=== PATIENT | male | born 1950 | race Caucasian/White ===

== ENCOUNTER 2019-05-20 08:28 | Day surgery (SDC) | payer MEDICARE, OTHER, SELFPAY ==
[2019-05-19 12:32] VITALS: BMI 25.1
[2019-05-20] VITALS (7 sets, daily range): BP systolic 116–171; BP diastolic 74–95; PULSE 66–93; RESP 16–18; TEMP 36.3–37; O2SAT 96–100
--- NOTE | 2019-05-20 09:28 | P.ANES_ITS ---
Pre-Anesthetic Assessment Pre-Anesthetic Assessment: Height/Weight: Height 1.78 m Weight 79.379 kg Temp Pulse Resp BP Pulse Ox 98.6 F 66 18 171/95 97 05/20/19 08:53 05/20/19 08:53 05/20/19 08:53 05/20/19 08:53 05/20/19 08:53 Preop Diagnosis: Left shoulder rotatof cuff tear, AC joint DJD Proposed Procedure: Operation Date: 05/20/19 11:15 Proposed Procedures p Shoulder Arthroscopy, subacromial decompresssion, poss bicep tenodesis 34117, 31879 M75.112 M19.012 M75.42(Left) - DO dale Shepard Rotator Cuff Repair(Left) - DO dale Shepard Distal Clavicle Resection(Not Applicable) - Mario Gavin DO Familial anesthetic complications: No touble with anesthesia Was Beta Rhonda taken within 24 hours: N/A Last intake: Intake Last night at 900 pm Last Liquid Date 05/19/19 Last Solid Date 05/19/19 Social: Social History: Alcohol (2 highballs (whiskey and water) -) and No to bacco Exam: Pre-Anes Outpt Exam: alert, oriented x 3, clear to auscultation bilaterally and regular rate & rhythm Airway: Cervical ROM: WNL MP: 4 Dentition: Other Additional comments: 2 caps on front Pulmonary: Pulmonary: None reported CV/HEM: CV/HEM: HTN : : None reported Hepatic: Hepatic: None reported GI: GI: None reported Metabolic: Metabolic: None reported Musc/skel: Musc/skel: None reported Neuropsych: Neuropsych: None reported Anesthetic Plan: Anesthesia: General and Regional (specify below) ( Interscalene (L)) Risk of > 500 ml blood loss (7ml/kg in children): No Data Anesthesia Cardiac Studies: No Data to Display
[2019-05-20] MEDS: sodium chloride 0.9% 1,000 ML 30 ML IV (09:45)
--- NOTE | 2019-05-20 09:55 | ANES.PROC ---
Anesthesia Procedures Procedure/Date: 05/20/19 Nerve Block ^: Nerve Block 1: Main Anesthesia: general anesthesia Time Out Performed: Yes Consent: requested by attending/covering physician, from patient, risks and benefits reviewed and patient agrees to proceed Nerve block location: interscalene (L) Anesthesia monitors applied: pulse oximetry Nerve block position: semi sitting Anesthetic Used: ropivicaine 0.5% and with decadron (4 mg) Amount of anesthesia used (mL): 20 Ultrasound used to: visualize and ID brachial plexus and visualize and ID interscalene groove Nerve Stimulator Used?: No Interscalene/Femoral BLK: 2 stimuplex 22 g needle used for position and inplane approach, visualize local anesthetic spread and no vascular puncture identified Injection: neg aspiration of heme Patient Tolerated Procedure: well and no complications Complications: none
[2019-05-20] MEDS: midazolam 1 mg/mL INJ 2 mL 2 MG IVP ×2 (10:00→11:37)
--- NOTE | 2019-05-20 11:04 | PM.HPUD ---
H&P update H&P Update: DATE OF SURGERY/PROCEDURE: 05/20/19 DATE H&P PERFORMED: 04/23/19 H&P UPDATE INFORMATION: H&P completed within last 30 days and No changes to prior documentation PREOP DIAGNOSIS: left shoulder rotator cuff tear PRIMARY INDICATION FOR PROCEDURE: left shoulder pain with decreased range of motion PLANNED PROCEDURE: Operation Date: 05/20/19 11:15 Proposed Procedures p Shoulder Arthroscopy, subacromial decompresssion, poss bicep tenodesis 81958, 09795 M75.112 M19.012 M75.42(Left) - DO dale Shepard Rotator Cuff Repair(Left) - DO dale Shepard Distal Clavicle Resection(Not Applicable) - DO Eugenia Shepard H&P Medications/Allergies: Current Medications: Current Medications Generic Name Dose Route Start Last Admin Trade Name Freq PRN Reason Stop Dose Admin Sodium Chloride 1,000 mls @ 30 ml s/hr 05/20/19 09:00 05/20/19 09:45 Sodium Chloride 0.9% IV 05/21/19 08:59 30 mls/hr .Q24H DEEPAK Administration
[2019-05-20] MEDS: vancomycin 1,000 MG in sodium chloride 0.9% 250 ML 250 MG IV (13:45)
--- NOTE | 2019-05-20 14:13 | P.OP_ITS ---
Operative Report Date of procedure: 05/20/19 Preop Diagnosis: left shoulder rotator cuff tear Post-op Findings: left shoulder rotator cuff tear Procedure Done: diagnostic arthroscopy left shoulder with minimal debridement Open distal clavicle resection Open subacromial decompression Open rotator cuff repair with application of acellular dermal graft and platelet rich plasma Implants: #4 Arthrex swivel lock anchors Specimens removed/disposition: distal clavicle Portion of acromion Surgeon: Mario Gavin Anesthesia: general and other (left-sided interscalene block) Estimated blood loss (mL): 50 Complications: no apparent complications Condition: stable Disposition: PACU (then home) Brief History: 69-year-old white male with gradual onset over the last 2 years of left shoulder pain. Pain has affected patient by decreased range of motion and persistent pain this gotten progressively worse.. He noticed that his range of motion is decreased is also painful. He has difficulty with activities of daily living such as dressing pushing pulling and lifting. Plain film x-rays show arthritic change of the acromioclavicular joint. MRI shows full thickness tear of the rotator cuff with some mild retraction. Recommendations are made that the patient this point undergo diagnostic arthroscopy with rotator cuff repair application of acellular patch with platelet rich plasma with distal clavicle excision soak decompression possible biceps tenodesis. We discussed with the patient that the most common complication rotator cuff repair is a re-tear this is reasonable we will use the acellular patch to provide more tissue near to augment the repair of his 69-year-old rotator cuff foot. He may have decreased range of motion, he may have persistent complaints of pain.he could experience nerve/blood vessel/tendon injury. Medical complications sling surgery can be blood clots, heart attack, stroke risk up to including as well as infection. patient agreeable to proceed with surgery. Procedure: patient identified. Surgical site was signed. Surgical permit was signed. Patient received a left-sided interscalene block by the anesthesia team in the preoperative holding area for postoperative analgesia. He was taken back to the operating room. He received 1 g of vancomycin intravenously for surgical prophylaxis as he is penicillin allergic. He was placed under general endotracheal anesthesia without difficulty. He was then positioned in the beachchair positioner. He was then sterilely prepped and draped usual fashion. Procedural pause was performed. Using a skin marker we marked out the bony landmarks. Using #11 blade we made a small stab incision through which the arthroscopic sheath with a blunt trocar was introduced of the glenohumeral joint. The trocar was then attached to the arthroscopic pump with the dilute saline solution containing epinephrine. The arthroscope verified the written the glenohumeral joint. We verified the position of the biceps tendon and the upper border subscapularis. We advance the arthroscope anteriorly from back to front tenting the skin after the scope was taken out with a switching stick. Is getting 15 blade made an anterior portal incision inserted a 7 mm Arthrex clear cannula. Through this cannula introduced a motorized shaver. We used the shaver to debride some synovial tissue as well as some minor fraying of the labrum. No significant glenohumeral arthritis was noted. Patient's biceps tendon was intact. He had minimal fraying of the anterior aspect of the labrum this was debrided incidentally along with some synovial visualization. With the patient had a full-thickness rotator cuff tear laterally that been noted on MRI. We removed the instruments from the shoulder joint and proceeded to open portion of procedure. We made a skin incision approximately 10 7 L in length from the distal clavicle across the superior aspect of the shoulder coursing to the anterolateral aspect of the upper arm. Full-thickness skin flaps were made. Coagulation was performed of skin edge bleeders. We then used electrocautery to raise the deltopectoral trapezial insertion of the distal clavicle and superior aspect of the acromion. Using a small saw we performed our distal clavicle cut and removed the distal portion of the clavicle approximately 6-8 mm in thickness. We then removed the anterior 45 mm of the acromion with the saw and then use an osteotome to further thin the acromion and used a motorized bur to smooth the distal clavicle as well as the undersurface of the acromion. We performed a partial bursectomy exposing underlying rotator cuff tear. The tear was full-thickness anteriorly and was very thin around the edges perhaps less than millimeters thickness of tissue proximal to the size of a dime just posterior to the bicipital groove. I extended the tear to incorporate the entire supraspinatus tendon and roughened the greater tuberosity footprint 2 medial row anchors were placed through which replaced sutures of #2 FiberWire medially and then slightly lateral to this limbs of fiber tape suture. The fiber tape suture was tied down with a surgeons not and then lateral row anchors were used to make a speed bridge construct.. Due to the thin nature of the claire sofia's rotator cuff as we have noted on MRI and clinically we were prepared to apply a acellular dermal patch to reinforce the patient's soft tissue this was done by trimming the graft that had soaked in platelet rich plasma that been drawn from the patient sterilely beginning of the procedure and spun down by the commercial lawn specialist. The graft was cut to approximate the area of our repair. It was held down in the 4 corner region using the #2 FiberWire suture that was placed using a free needle through the graft and secured down to the patient's rotator cuff repair. We then placed a running suture of 3-0 Prolene around the periphery of the patch to further secured in place. The wound is now irrigated Betadine-containing saline solution and antibiotic containing saline solution. The deltoid was repaired back to the acromion by using #2 FiberWire sutures to reattach the deltoid to bone by passing the needle through the bone of the acromion. We then repaired the deltotrapezial split over the distal clavicle and the split of the muscle bellies of the anterior lateral deltoid using a sutures of #2 FiberWire. The wound was then closed in layerswith the final layer being 3-0 Monocryl in a running subcuticular fashion. The 2 portal sites and the major incision and skin glue followed by Steri-Strips applied followed by sterile dressings. The patient is placed in a shoulder immobilizer bolster. He was then aroused from general anesthesia. He was extubated he was taken to the recovery room in stable and satisfactory condition having tolerated procedure well. At the end of procedure all counts were correct.
[2019-05-20] MEDS: EPINEPHrine 1 mg/mL INJ XX ×2 (14:57→14:59)
--- NOTE | 2019-05-20 16:56 | SUR.PHASEI ---
1639 PT AWAKE ALERT DENIESPAIN BUT WANTS TO GET UP TO BEDSIDE TO USE URINAL, PT TO OPS AWAKE ALERT ASSISTED TO BEDIDE ,,PT USING URINAL WITHOUT ASSIST, VSS LT ARM IN SHOULDER IMMOBILIZER. DISTAL FINGERS PINK WARM AND PT MOVES TO COMMAND, STATES THEY FEEL(NUMB)
== END 2019-05-20 17:31 | disposition home or self-care (01) ==
PROVIDERS: Visit Provider Orthopaedic Surgery
PROC: (CPT 29805; principal; 2019-05-20 11:05)
PROC: (CPT 23120; 2019-05-20 11:05)
PROC: (CPT 23120; 2019-05-20 11:05)
DX: M75.112 Incomplete rotator cuff tear or rupture of left shoulder, not specified as traumatic (principal); I10 Essential (primary) hypertension; M17.0 Bilateral primary osteoarthritis of knee; Z83.3 Family history of diabetes mellitus
CPT/HCPCS: 23120; 23130; 23412; 29822; 12345; 88304; 96365; 96374; 96375; J0171; J1100; J1580; J2001; J2250; J2405; J2704; J2795; J3010; J3370; J3490; J7030; J7050

== ENCOUNTER → 2019-05-27 09:07 | Outpatient (BNVA) | payer MEDICARE, OTHER, SELFPAY | PROVIDERS: Visit Provider Specialist | DX: G50.0 Trigeminal neuralgia (principal); G51.32 Clonic hemifacial spasm, left | CPT/HCPCS: 64612; 99212; J0585 ==

== ENCOUNTER 2019-08-04 06:00 | Outpatient (RCR) | payer MEDICARE, OTHER, SELFPAY | END 2019-09-02 23:59 | disposition home or self-care (01) | LOC: MPT 06:00 | PROVIDERS: Referring Provider Orthopaedic Surgery; Visit Provider Orthopaedic Surgery | DX: Z47.89 Encounter for other orthopedic aftercare (principal) | CPT/HCPCS: 97110; 97140; 97161 ==

== ENCOUNTER → 2019-09-02 14:45 | Outpatient (BNVA) | payer MEDICARE, OTHER, SELFPAY | PROVIDERS: Visit Provider Specialist | DX: G51.32 Clonic hemifacial spasm, left (principal) | CPT/HCPCS: 64612; J0585 ==

== ENCOUNTER 2019-09-03 06:00 | Outpatient (RCR) | payer MEDICARE, OTHER, SELFPAY | END 2019-10-03 23:59 | disposition home or self-care (01) | LOC: MPT 06:00 | PROVIDERS: Referring Provider Orthopaedic Surgery; Visit Provider Orthopaedic Surgery | DX: Z47.89 Encounter for other orthopedic aftercare (principal) | CPT/HCPCS: 97110; 97140 ==

== ENCOUNTER 2019-10-04 06:00 | Outpatient (RCR) | payer MEDICARE, OTHER, SELFPAY | END 2019-11-02 23:59 | disposition home or self-care (01) | LOC: MPT 06:00 | PROVIDERS: Visit Provider Orthopaedic Surgery | DX: Z47.89 Encounter for other orthopedic aftercare (principal) | CPT/HCPCS: 97110; 97140 ==

== ENCOUNTER 2019-11-03 06:00 | Outpatient (RCR) | payer MEDICARE, OTHER, SELFPAY | END 2019-12-03 23:59 | disposition home or self-care (01) | LOC: MPT 06:00 | PROVIDERS: Visit Provider Orthopaedic Surgery | DX: Z47.89 Encounter for other orthopedic aftercare (principal) | CPT/HCPCS: 97110; 97140 ==

== ENCOUNTER 2020-04-06 08:04 | Outpatient (CLI) | payer MEDICARE, OTHER, SELFPAY ==
[2020-04-06 08:35] VITALS: BMI 27.3
--- NOTE | 2020-04-06 08:47 | ECG_ITS ---
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 Interpretive Statements NAME OF STUDY: LEXISCAN SESTAMIBI STRESS TEST INDICATION: Dyspnea on Exertion PROCEDURE: At the baseline, the blood pressure was 194/90 mmHg, oxygen saturation 96% with a heart rate of 56 bpm. The electrocardiogram showed sinus bradycardia, normal axis with minimal nonspecific ST depression. The Lexiscan was infused over a period of 20 seconds. A total of 0.4 milligrams of Lexiscan was infused. The stress phase was continued for a total of 5 minutes. Heart rate at the end of the stress phase was 78 bpm, oxygen saturation 96% with a blood pressure 164/84 mmHg. The EKG at the peak infusion revealed sinus rhythm with no significant ST-T wave changes. The study was terminated due to protocol completion. Sestamibi was injected 20 seconds after the Lexiscan infusion. Blood pressure at the end of the recovery phase was 164/84 mmHg, oxygen saturation 96 with a heart rate of 85 beats per minute. CONCLUSION: 1. No significant EKG changes with the LexiScan infusion. 2. No LexiScan induced chest pain or cardiac arrhythmia. 3. Normal blood pressure and heart rate response. 4. Sestamibi/sestamibi perfusion scan pending; see separate report. Electronically Signed On 04-07-2020 14:12:53 COATER ASSOCIATE by Lesa Gomez M.D. [email or web address].[employer]/[id number]
--- NOTE | 2020-04-06 08:47 | NMCV_ITS ---
NM анна perf SPECT r/s* [id number] Santiago Casey Age: 70 Gender: M : 1950 Exam Date: 04/06/2020 08:47 Ordering Phys: Lesa Gomez MD ([email or web address]) Technologist: EDMUND Olson Exam Location: [facility] Indications: DYSPNEA ON EXERTION STRESS TEST Please [facility] IMAGE PROTOCOL Rest/Stress 1 Lexiscan Day Radiopharmaceutical Dose (mCi) Administration Site Administered by Rest: Tc-99m 11.0 IV EDMUND Olson Sestamibi Stress:Tc-99m 32.9 IV EDMUND Nelson Sestamibi Rest: 06-Apr-2020 60 Discovery 630 Stress: 06-Apr-2020 30 Discovery 630 0.4mg Lexiscan. Supine position only as patient was unable to lay prone. SPECT RESULTS Technical Quality: Excellent Raw Data Analysis: Normal Image Corrections: No attenuation or motion correction applied Summed Stress Score: 0 Summed Rest Score: 0 Summed Difference Score: 0 PERFUSION FINDINGS SPECT images demonstrate homogeneous tracer distribution throughout the myocardium on rest and stress images. FUNCTIONAL RESULTS (calculated via Gated SPECT) Stress Image LV EF (%): 91 Stress EDV (mL):74 TID: 0.95 Stress ESV (mL):7 FUNCTIONAL FINDINGS: The left ventricle is normal in size. Transient Ischemia Dilatation of 0.95. There is normal left ventricular systolic function. The left ventricular ejection fraction is hyperdynamic with a value of 91%. There is hyperdynamic left ventricular wall thickening. IMPRESSIONS 1. Myocardial perfusion imaging is normal. 2. Overall left ventricular systolic function is normal without regional wall motion abnormalities. 3. The left ventricular ejection fraction is hyperdynamic with a value of 91%. 4. This study suggests a low likelihood of angiographically significant coronary artery disease. 5. No prior similar studies to compare. Lesa Gomez MD (Electronically Signed) Final Date: 07 April 2020 14:18 S
--- NOTE | 2020-04-06 11:08 | SUR.PREOP ---
Patient reports no pain or discomfort prior to the start of the procedure.
[2020-04-06] MEDS: regadenoson 0.4 Mg/5 ml Syringe IVP (11:09)
[2020-04-06 11:34] VITALS: BP 164/84; PULSE 84
== END 2020-04-06 08:05 | disposition home or self-care (01) ==
LOC: CDL 08:14
PROVIDERS: Visit Provider Internal Medicine Cardiovascular Disease
DX: R06.00 Dyspnea, unspecified (principal)
CPT/HCPCS: 78452; 93017; A9500; J2785

== ENCOUNTER → 2020-06-08 09:43 | Outpatient (BNVA) | payer MEDICARE, OTHER, SELFPAY | PROVIDERS: Visit Provider Specialist | DX: G51.32 Clonic hemifacial spasm, left (principal) | CPT/HCPCS: 64612; J0585 ==

== ENCOUNTER → 2020-09-06 10:58 | Outpatient (BNVA) | payer MEDICARE, OTHER, SELFPAY | PROVIDERS: PCP Nurse Practitioner Family; Visit Provider Internal Medicine Cardiovascular Disease | DX: Z20.822 Contact with and (suspected) exposure to COVID-19 (principal); R00.1 Bradycardia, unspecified | CPT/HCPCS: 87635 ==

== ENCOUNTER 2020-09-11 12:44 | Outpatient (CLI) | payer MEDICARE, OTHER, SELFPAY ==
--- NOTE | 2020-09-11 13:47 | PFTS_ITS ---
Date of Study:09/11/20 Date of Dictation: 09/15/2020 MECHANICS: Post bronchodilator forced vital capacity (FVC) is normal. Post bronchodilator forced expiratory volume in one second (FEV1) is mildly reduced at 85% FEV1/FVC is reduced. There is no significant response to bronchodilator. FLOW VOLUME LOOP: Normal . LUNG VOLUMES: Total lung capacity (TLC) is normal. Residual volume (RV) is normal DIFFUSING CAPACITY FOR CARBON MONOXIDE: Mildly reduced to 66% . INTERPRETATION: The pulmonary function tests mild obstruction on spirometry with no significant bronchodilator response. Normal lung volumes. Mildly reduced gas transfer. Correlate clinically. MTDD
== END 2020-09-11 12:45 | disposition home or self-care (01) ==
LOC: RT 12:49
PROVIDERS: PCP Nurse Practitioner Family; Visit Provider Internal Medicine Cardiovascular Disease
DX: R06.00 Dyspnea, unspecified (principal)
CPT/HCPCS: 94060; 94726; 94729; J7611

== ENCOUNTER → 2020-09-21 12:03 | Outpatient (BNVA) | payer MEDICARE, OTHER, SELFPAY | PROVIDERS: PCP Nurse Practitioner Family; Visit Provider Specialist | DX: G51.32 Clonic hemifacial spasm, left (principal); B02.22 Postherpetic trigeminal neuralgia | CPT/HCPCS: 64612; J0585 ==

== ENCOUNTER → 2020-10-19 12:03 | Outpatient (BNVA) | payer MEDICARE, OTHER, SELFPAY | PROVIDERS: PCP Nurse Practitioner Family; Visit Provider Anesthesiology Pain Medicine | DX: G89.29 Other chronic pain (principal); M48.062 Spinal stenosis, lumbar region with neurogenic claudication; M47.816 Spondylosis without myelopathy or radiculopathy, lumbar region; M51.16 Intervertebral disc disorders with radiculopathy, lumbar region; M43.12 Spondylolisthesis, cervical region; M50.90 Cervical disc disorder, unspecified, unspecified cervical region; M54.9 Dorsalgia, unspecified; B02.22 Postherpetic trigeminal neuralgia; Z79.891 Long term (current) use of opiate analgesic | CPT/HCPCS: 99204 ==

== ENCOUNTER 2020-11-07 07:52 | Outpatient (CLI) | payer MEDICARE, OTHER, SELFPAY ==
--- NOTE | 2020-11-07 08:00 | MR_ITS ---
WS: [id number] MRI LUMBAR SPINE NONCONTRAST TECHNIQUE: Sagittal T1, T2 and STIR imaging. Axial T1 and T2 imaging. CLINICAL INFORMATION: M48.062 - Spinal stenosis, lumbar region with neurogenic ... COMPARISON: None. FINDINGS: Mild lumbar curve. No acute compression. No high-grade central canal stenosis. L1-L2: Normal. L2-L3: Mild annular bulging. Moderate facet arthropathy. Narrowing of the right subarticular recess. Mild right and no significant left foraminal narrowing. Mild central canal stenosis. L3-L4: Mild disc bulging with slight effacement of the ventral thecal sac. Moderate facet arthropathy . Foramen are patent. L4-L5: Mild disc bulging with mild central canal stenosis. Impingement traversing L5 nerve roots bila terally. Mild left and no significant right foraminal narrowing. Moderate facet arthropathy with liga mentum flavum flavum hypertrophy. L5-S1: Mild annular bulging with slight effacement of ventral thecal sac. Slight contact the right S1 nerve root. Mild to moderate facet arthropathy. Spinal canal and foramen are patent. Thoracic canal is patent on the [employer] glazer imaging. Visualized pelvic bony structures: Normal. Paravertebral soft tissues: Normal. MR/MR lumbar spine wo con* [id number] IMPRESSION: 1. Mild lumbar curve. No acute compression. No high-grade central canal stenos is. 2. Mild central canal stenosis L2-3 and L4-5 with narrowing of the right L2-3 and bilateral L4-5 subarticular recess. 3. Mild right L2-3 and mild left L4-5 foraminal narrowing. 4. Moderate facet arthropathy L3-L4 and L4-L5.
--- NOTE | 2020-11-07 08:45 | MR_ITS ---
WS: [id number] MRI CERVICAL SPINE NONCONTRAST TECHNIQUE: Sagittal T1, T2 and STIR imaging. Axial T2, gradient, and fiesta imaging. CLINICAL INFORMATION: M54.12 - Radiculopathy, cervical region COMPARISON: None. FINDINGS: Straightening of the normal cervical lordosis. Cord signal is normal. No high-grade central canal danis rowing. Prior postoperative changes ACDF C6-7. C2-C3: Normal. C3-C4: Mild disc bulging with osteophytic ridging. Mild facet arthropathy. Mild left foraminal narrow ing. Spinal canal is patent. C4-C5: Mild disc bulging with a tiny central shallow protrusion. Mild left greater than right bony fo raminal narrowing. Spinal canal is patent. Mild facet arthropathy. C5-C6: Mild disc osteophyte complex endplate ridging. Mild central canal stenosis with slight contact of the cervical cord. Mild bilateral foraminal narrowing. Mild facet arthropathy. C6-C7: Postoperative changes ACDF. Spinal canal and foramen are patent. C7-T1: Mild disc osteophytic ridging. Mild left and no significant right foraminal narrowing. Spinal canal is patent. Visualized brain stem structures: Normal. Prevertebral soft tissues: Normal. MR/MR cervical spin wo con* [id number] IMPRESSION: 1. Straightening of the normal cervical lordosis. No high-grade central canal narrowing. Cord signal is normal. 2. Prior ACDF C6-7. Spinal canal and foramen are patent at this level. 3. Mild central canal stenosis C5-6 due to disc osteophyte complex and tiny sh allow central protrusion. 4. Tiny shallow central disc osteophyte protrusion C4-5. 5. Mild bony foraminal narrowing more prominent at left C4-5, bilateral C5-C6, left C6-7.
--- NOTE | 2020-11-07 09:30 | XR_ITS ---
WS: [id number] CERVICAL SPINE FLEXION EXTENSION TECHNIQUE: 3 views of the cervical spine: lateral neutral, flexion and extension views. CLINICAL INFORMATION: M43.12 - Spondylolisthesis, cervical region COMPARISON: None. FINDINGS: Straightening of the normal cervical lordosis. ACDF C6-7. Hardware appears in good position. Anterior hypertrophic changes C5-6. No instability on flexion extension. Posterior elements are normal. No other significant findings. XR/XR cervical spine fl/ex [id number] IMPRESSION: No instability on flexion-extension
--- NOTE | 2020-11-07 10:00 | XR_ITS ---
WS: [id number] LUMBAR SPINE FLEXION AND EXTENSION TECHNIQUE: 3 views of the lumbar spine: Lateral neutral, flexion, and extension views. CLINICAL INFORMATION: M47.816 - Spondylosis without myelopathy or radiculopathy... COMPARISON: None. FINDINGS: Osteopenia. Anterior bridging osteophytes L2-L4. Disc space heights are relatively well-maintained. M oderate facet arthropathy L5-S1. No anterolisthesis. No instability on flexion-extension. Aortic calc ification. XR/XR lumbar spine f/e only [id number] IMPRESSION: No instability on flexion-extension
== END 2020-11-07 07:53 | disposition home or self-care (01) ==
LOC: RADWPI 07:53
PROVIDERS: PCP Nurse Practitioner Family; Visit Provider Anesthesiology Pain Medicine
DX: M43.12 Spondylolisthesis, cervical region (principal); M47.816 Spondylosis without myelopathy or radiculopathy, lumbar region; M48.062 Spinal stenosis, lumbar region with neurogenic claudication; M54.12 Radiculopathy, cervical region; M25.78 Osteophyte, vertebrae; M50.221 Other cervical disc displacement at C4-C5 level; M48.02 Spinal stenosis, cervical region
CPT/HCPCS: 72040; 72120; 72141; 72148

== ENCOUNTER → 2020-11-16 12:28 | Outpatient (BNVA) | payer MEDICARE, OTHER, SELFPAY | PROVIDERS: PCP Nurse Practitioner Family; Visit Provider Anesthesiology Pain Medicine | DX: G89.29 Other chronic pain (principal); M51.16 Intervertebral disc disorders with radiculopathy, lumbar region; M47.816 Spondylosis without myelopathy or radiculopathy, lumbar region; M50.90 Cervical disc disorder, unspecified, unspecified cervical region; B02.22 Postherpetic trigeminal neuralgia; Z79.891 Long term (current) use of opiate analgesic | CPT/HCPCS: 99214; 99215 ==

== ENCOUNTER → 2020-11-27 14:07 | Outpatient (BNVA) | payer MEDICARE, OTHER, SELFPAY | PROVIDERS: PCP Nurse Practitioner Family; Visit Provider Anesthesiology Pain Medicine | DX: G89.29 Other chronic pain (principal); M47.816 Spondylosis without myelopathy or radiculopathy, lumbar region; Z79.891 Long term (current) use of opiate analgesic | CPT/HCPCS: 64493; 64494; 64495; J3490 ==

== ENCOUNTER → 2020-12-13 08:27 | Outpatient (BNVA) | payer MEDICARE, OTHER, SELFPAY | PROVIDERS: PCP Nurse Practitioner Family; Visit Provider Anesthesiology Pain Medicine | DX: G89.29 Other chronic pain (principal); B02.22 Postherpetic trigeminal neuralgia; M50.90 Cervical disc disorder, unspecified, unspecified cervical region; M51.16 Intervertebral disc disorders with radiculopathy, lumbar region; M47.816 Spondylosis without myelopathy or radiculopathy, lumbar region; Z79.891 Long term (current) use of opiate analgesic | CPT/HCPCS: 99214 ==

== ENCOUNTER → 2020-12-14 14:06 | Outpatient (BNVA) | payer MEDICARE, OTHER, SELFPAY | PROVIDERS: PCP Nurse Practitioner Family; Visit Provider Specialist | DX: G51.32 Clonic hemifacial spasm, left (principal); B02.29 Other postherpetic nervous system involvement | CPT/HCPCS: 64612; 99213; J0585 ==

== ENCOUNTER → 2021-01-15 12:52 | Outpatient (BNVA) | payer MEDICARE, OTHER, SELFPAY | PROVIDERS: PCP Nurse Practitioner Family; Visit Provider Anesthesiology Pain Medicine | DX: G89.29 Other chronic pain (principal); M47.816 Spondylosis without myelopathy or radiculopathy, lumbar region; M54.2 Cervicalgia; Z79.891 Long term (current) use of opiate analgesic | CPT/HCPCS: 64635; 64636; J1030 ==

== ENCOUNTER → 2021-01-29 12:36 | Outpatient (BNVA) | payer MEDICARE, OTHER, SELFPAY | PROVIDERS: PCP Nurse Practitioner Family; Visit Provider Anesthesiology Pain Medicine | DX: G89.29 Other chronic pain (principal); M47.816 Spondylosis without myelopathy or radiculopathy, lumbar region; M54.2 Cervicalgia; Z79.891 Long term (current) use of opiate analgesic | CPT/HCPCS: 64635; 64636; J1030 ==

== ENCOUNTER 2021-02-05 13:41 | Outpatient (CLI) | payer OTHER, SELFPAY ==
--- NOTE | 2021-02-05 13:51 | CT_ITS ---
WS: [id number] CT scan of the head, 02/05/2021 Clinical Data: NEW ONSET UPPER EXTREMITY TREMORS Comparison: None. DLP: 925.[address] scans at [facility] use at least one of these dose optimization techniques: automated e xposure control; mA and/or kV adjustment per patient size (includes targeted exams where dose is matc hed to clinical indication); or iterative reconstruction. Findings: The ventricular system is moderately dilated without shift. No recent infarct or hemorrhage is seen. There are no abnormal intracerebral masses. The cerebellum and brainstem are not remarkable. Bony windows of the skull and skull base show no fractures or erosions. The mastoid air cells, commander internal affairs al auditory canals, sella turcica, intraorbital contents, and paranasal sinuses are unremarkable. CT/CT head wo con* [id number] Impression: Moderate cerebral atrophy.
== END 2021-02-05 13:42 | disposition home or self-care (01) ==
PROVIDERS: PCP Nurse Practitioner Family; Visit Provider Nurse Practitioner
DX: G25.2 Other specified forms of tremor (principal); G31.9 Degenerative disease of nervous system, unspecified
CPT/HCPCS: 70450

== ENCOUNTER → 2021-02-12 10:23 | Outpatient (BNVA) | payer MEDICARE, OTHER, SELFPAY | PROVIDERS: PCP Nurse Practitioner Family; Visit Provider Anesthesiology Pain Medicine | DX: G89.29 Other chronic pain (principal); M51.16 Intervertebral disc disorders with radiculopathy, lumbar region; M47.816 Spondylosis without myelopathy or radiculopathy, lumbar region; M50.90 Cervical disc disorder, unspecified, unspecified cervical region; B02.22 Postherpetic trigeminal neuralgia; M19.90 Unspecified osteoarthritis, unspecified site; I10 Essential (primary) hypertension; Z79.891 Long term (current) use of opiate analgesic; Z77.22 Contact with and (suspected) exposure to environmental tobacco smoke (acute) (chronic) | CPT/HCPCS: 99214 ==

== ENCOUNTER → 2021-02-20 13:31 | Outpatient (BNVA) | payer MEDICARE, OTHER, SELFPAY | PROVIDERS: PCP Nurse Practitioner Family; Visit Provider Anesthesiology Pain Medicine | DX: G89.29 Other chronic pain (principal); M51.16 Intervertebral disc disorders with radiculopathy, lumbar region; M54.2 Cervicalgia; Z79.891 Long term (current) use of opiate analgesic | CPT/HCPCS: 62323; J1040; J3490 ==

== ENCOUNTER → 2021-03-06 09:13 | Outpatient (BNVA) | payer MEDICARE, OTHER, SELFPAY | PROVIDERS: PCP Nurse Practitioner Family; Visit Provider Anesthesiology Pain Medicine | DX: G89.29 Other chronic pain (principal); M51.16 Intervertebral disc disorders with radiculopathy, lumbar region; M47.816 Spondylosis without myelopathy or radiculopathy, lumbar region; M50.90 Cervical disc disorder, unspecified, unspecified cervical region; B02.22 Postherpetic trigeminal neuralgia; Z79.891 Long term (current) use of opiate analgesic | CPT/HCPCS: 99214 ==

== ENCOUNTER → 2021-03-08 12:02 | Outpatient (BNVA) | payer MEDICARE, OTHER, SELFPAY | PROVIDERS: PCP Nurse Practitioner Family; Visit Provider Specialist | DX: G51.32 Clonic hemifacial spasm, left (principal); B02.29 Other postherpetic nervous system involvement | CPT/HCPCS: 64612; 99213; J0585 ==

== ENCOUNTER → 2021-03-26 15:31 | Outpatient (BNVA) | payer MEDICARE, OTHER, SELFPAY | PROVIDERS: PCP Nurse Practitioner Family; Visit Provider Nurse Practitioner Family | DX: M25.562 Pain in left knee (principal); M25.362 Other instability, left knee | CPT/HCPCS: 73562 ==

== ENCOUNTER 2021-05-03 06:00 | Outpatient (RCR) | payer MEDICARE, OTHER, SELFPAY | END 2021-05-04 23:59 | disposition home or self-care (01) | LOC: MPT 06:00 | PROVIDERS: PCP Nurse Practitioner Family; Referring Provider Anesthesiology Pain Medicine; Visit Provider Anesthesiology Pain Medicine | DX: M54.50 Low back pain, unspecified (principal); G89.29 Other chronic pain | CPT/HCPCS: 97110; 97162 ==

== ENCOUNTER 2021-05-05 06:00 | Outpatient (RCR) | payer MEDICARE, OTHER, SELFPAY | END 2021-06-04 23:59 | disposition home or self-care (01) | LOC: MPT 06:00 | PROVIDERS: PCP Nurse Practitioner Family; Referring Provider Anesthesiology Pain Medicine; Visit Provider Anesthesiology Pain Medicine | DX: M54.50 Low back pain, unspecified (principal); G89.29 Other chronic pain | CPT/HCPCS: 97110; 97140; G0283 ==

== ENCOUNTER → 2021-05-30 08:53 | Outpatient (BNVA) | payer MEDICARE, OTHER, SELFPAY | PROVIDERS: PCP Nurse Practitioner Family; Visit Provider Anesthesiology Pain Medicine | DX: G89.29 Other chronic pain (principal); M48.062 Spinal stenosis, lumbar region with neurogenic claudication; M51.16 Intervertebral disc disorders with radiculopathy, lumbar region; M47.816 Spondylosis without myelopathy or radiculopathy, lumbar region; M50.90 Cervical disc disorder, unspecified, unspecified cervical region; B02.22 Postherpetic trigeminal neuralgia; Z79.891 Long term (current) use of opiate analgesic | CPT/HCPCS: 99214 ==

== ENCOUNTER → 2021-05-31 12:45 | Outpatient (BNVA) | payer MEDICARE, OTHER, SELFPAY | PROVIDERS: PCP Nurse Practitioner Family; Visit Provider Specialist | DX: G51.32 Clonic hemifacial spasm, left (principal); B02.22 Postherpetic trigeminal neuralgia | CPT/HCPCS: 64612; J0585 ==

== ENCOUNTER → 2021-06-18 09:05 | Outpatient (BNVA) | payer MEDICARE, OTHER, SELFPAY | PROVIDERS: PCP Nurse Practitioner Family; Referring Provider Internal Medicine; Visit Provider Internal Medicine | DX: Z20.822 Contact with and (suspected) exposure to COVID-19 (principal); M51.16 Intervertebral disc disorders with radiculopathy, lumbar region | CPT/HCPCS: 87635 ==

== ENCOUNTER 2021-06-22 05:56 | Day surgery (SDC) | payer MEDICARE, OTHER, SELFPAY ==
--- NOTE | 2021-06-19 11:13 | ECG_ITS ---
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 Measurements Intervals [place] Rate: 71 P: 66 NV: 179 QRS: -7 QRSD: 83 T: 63 QT: 404 QTc: 440 Interpretive Statements SINUS RHYTHM No previous ECG available for comparison Electronically Signed On 06-20-2021 14:49:34 SENIOR CHEMIST by Lesa Gomez M.D. [id number]
[2021-06-19 11:14] VITALS: BMI 25.8
--- NOTE | 2021-06-19 11:47 | ANES.PREANE2 ---
Pre-Anesthetic Assessment Height/Weight: Height 1.78 m Weight 81.647 kg Preop Diagnosis: left shoulder rotator cuff tear Operation Date: 06/22/21 11:15 Proposed Procedures p Lumbar decompression L4/5 59240/M48.062(Not Applicable) - Jin Yañez DO Familial anesthetic complications: None Was Beta Rhonda taken within 24 hours: Yes Was Clonidine taken within 24 hours: N/A Social No alcohol and No tobacco Exam alert, oriented x 3, clear to auscultation bilaterally and regular rate & rhythm Airway Submandibular: within normal limits Cervical ROM: within normal limits Mallampati: Class III Dentition: chipped and caps Comments: Comments: Missing several on lower arch Limited mouth opening CV/HEM Hypertension Metabolic Hyperlipidemia and Thyroid Disease Musc/skel Lower Back Pain and Osteoarthritis/DJD Anesthetic Plan ASA status: 3 Anesthesia: General Medications/Allergies Home Medications Medication Instructions Recorded Confirmed Last Taken Type cyanocobalamin (vitamin B-12) 100 100 mcg PO DAILY 05/19/19 05/31/21 05/20/19 History mcg tablet (Vitamin B-12) diclofenac sodium 1 % topical gel 1 % TOPICAL BID 05/19/19 05/31/21 05/20/19 History docusate sodium 100 mg capsule 100 mg PO DAILY 05/19/19 05/31/21 05/20/19 07:00 History (Stool Softener) tamsulosin 0.4 mg capsule 0.8 mg PO DAILY 05/19/19 05/31/21 05/20/19 History cholecalciferol (vitamin D3) 1,250 50,000 unit PO Q7D 05/20/19 05/31/21 05/17/19 History mcg (50,000 unit) capsule onabotulinumtoxinA 100 unit 200 unit SUBCUT DIRECTED 05/27/19 05/31/21 Unknown History solution for injection (Botox) finasteride 5 mg tablet 5 mg PO DAILY 02/21/20 05/31/21 Unknown History levothyroxine 25 mcg tablet 25 mcg PO DAILY 02/21/20 05/31/21 Unknown History simvastatin 20 mg tablet 20 mg PO DAILY 02/21/20 05/31/21 Unknown History lisinopril 5 mg tablet See Rx Instructions .ROUTE 08/10/20 05/31/21 Unknown Rx .COMPLEX #90 tab metoprolol tartrate 25 mg tablet 12.5 mg PO BID #90 tab 08/10/20 05/31/21 Unknown Rx gabapentin 300 mg capsule 300 mg PO TID #90 cap 12/13/20 05/31/21 Unknown Rx Allergies Allergy/AdvReac Type Severity Reaction Status Date / Time NSAIDS (Non-Steroidal Allergy Severe ADR-Nausea Verified 06/05/21 14:23 Anti-Inflamma Penicillins Allergy Severe ALGY-Hives Verified 06/05/21 14:23 SEAFOOD Allergy Severe ADR-Nausea Uncoded 06/05/21 14:23 [facility] Anesthesia Medical History HTN (hypertension) Impingement syndrome, shoulder, left Osteoarthritis Post-herpetic trigeminal neuralgia Shingles Surgical History H/O repair of left rotator cuff History of neck surgery History of shoulder surgery Family History Father Diabetes Brother Diabetes Other Hypertension Denies family history of Stroke Social History Smoking and tobacco status: never smoked Second hand smoke exposure: Yes Alcohol intake: current Alcohol intake frequency: holidays/special occasions only Alcohol type: hard liquor History of recent travel: No Data Anesthesia Cardiac Studies: Sestamibi Stress Test (Cardiology) 04/06/20
[2021-06-22] VITALS (9 sets, daily range): BP systolic 108–147; BP diastolic 69–88; PULSE 69–79; RESP 16–19; TEMP 36.1–36.3; O2SAT 94–100
--- NOTE | 2021-06-22 | SCC_ITS ---
Procedure done: 1. L4/5 laminectomy with patial facetectomy 13.9 seconds of fluoroscopic guidance, for a cumulative dose of 3.47 mGy, was provided to Dr. Yañez by the radiology department. C-arm images of the lumbar spine were saved for the patient's permanent record. [facility]
--- NOTE | 2021-06-22 | XR_ITS ---
WS: [id number] Lumbar spine, C-arm fluoroscopy, 06/22/2021 Clinical Data: spinal stenosis with neurogenic claudation. Comparison: None. Findings: Dr. Yañez performed a lumbar decompression XR/XR lumbar spine 1V [id number] Impression: Lumbar decompression.
[2021-06-22] MEDS: sodium chloride 0.9% 1,000 ML 30 ML IV (06:30)
--- NOTE | 2021-06-22 06:47 | P.ANESUD_ITS ---
Pre-Anesthetic Update Pre-Anesthetic Assessment: Date of Surgery/Procedure: 06/22/21 Preop Hortencia gnosis: Lumbar stenosis with neurogenic claudication Proposed Procedure: Operation Date: 06/22/21 07:00 Proposed Procedures p Lumbar decompression L4/5 23108/M48.062(Not Applicable) - Jin Yañez, DO Any changes to Pre-Anesthetic Assessment?: No Last Intake: Intake Last Liquid Date 06/21/21 Last Liquid Time 19:00 Last Solid Date 06/21/21 Last Solid Time 18:30 Vitals: Temperature 97.4 F L 06/22/21 06:11 Temperature Source Temporal Artery S can 06/22/21 06:11 Pulse Rate 79 06/22/21 06:11 Respiratory Rate 17 06/22/21 06:11 Blood Pressure 147/88 06/22/21 06:11 Blood Pressure [place] n 107 06/22/21 06:11 Pulse Oximetry 96 06/22/21 06:11 Oxygen Delivery Me thod 06/22/21 06:17 Exam: Pre-Anes Outpt Exam: alert, oriented x 3, clear to auscultation bilaterally and regular rate & rhythm Cardiac Studies: Sestamibi Stress Test (Cardiology) 04/06/20
--- NOTE | 2021-06-22 06:47 | W.PM.OPSUD ---
Surgery/Procedure H&P Update DATE OF PROCEDURE: June 22, 2021 DATE H&P PERFORMED: 04/23/19 H&P UPDATE INFORMATION: I have reviewed H&P completed within last 30 days, I have examined patient prior to procedure and No changes to prior documentation PREOP DIAGNOSIS: Lumbar stenosis with neurogenic claudication PLANNED PROCEDURE: Operation Date: 06/22/21 07:00 Proposed Procedures p Lumbar decompression L4/5 83343/M48.062(Not Applicable) - Jin Yañez DO
[2021-06-22] MEDS: clindamycin 900 MG/50 ML PREMIX 100 MG IV (06:52)
--- NOTE | 2021-06-22 07:59 | PM.OP ---
Operative Report Date of procedure: June 22, 2021 Pre-op diagnosis: Preop Diagnosis Lumbar stenosis with neurogenic claudication Post-op diagnosis: same Procedure done: 1. L4/5 laminectomy with patial facetectomy Surgeon: Jin Yañez Estimated blood loss (mL): 5 Procedure: Patient is brought to the operative suite. After undergoing anesthesia they are placed in the prone position. All areas of impingement are well padded. Patient is then prepped and draped in the normal sterile fashion. A skin incision is made over the L4/5 level. This is confirmed under c-arm guidance. A series of dilators are passed and the tubular retractor is docked on the L4 lamina. A bovie is used to clear the soft tissue off the lamina and the L 4/5 facet joint. A high speed cinthya is then used to perform the laminectomy and take down the medial aspect of the L 4/5 facet joint. A kerrison rongeure was then used to take down the remaining lamina and smooth the edge of the laminectomy up to the point where the ligamentum flavum attaches. Attention was then brought to the medial aspect of the facet joint. The remaining medial aspect of the superior and inferior aspect of the facet joint were taken down with the kerrison from the pedicle of L4 to L 5. The facet joint had significant hypertrophy. Attention was then brought to the Ligamentum Flavum. The ligament was taken down from the lamina of L4 to L5 and out medially to the remaining facet joint. The ligament was thick. The dura was then exposed. The dura was in good repair. The L4 nerve was then traced with a curette out the L4/5 foramen and found to be adequately decompressed. The L5 nerve was traced with a curette around the L5 pedicle. The lateral recess was opened with a kerrison helping to further decompress the L5 nerve. Wound is then irrigated copiously with saline and surgiflo is used to stop any bleeding. The tubular retractor is removed and the wound is closed with vicryl and monocryl suture. Glue is then used to protect the wound. A sterile dressing is then placed. Patient was then placed in the supine position and transferred to the PACU in stable condition.
--- NOTE | 2021-06-22 15:14 | ANE.PACU2 ---
Inpatient post-anesthesia follow up: Airway intact: Yes Vital signs: Temperature 97 F Pulse Rate 69 Respiratory Rate 18 Blood Pressure 126/82 Pulse Oximetry 95 Oxygen Delivery Me thod Room Air Oxygen Flow Rate Fraction of Inspir ed Oxygen Hydration adequate: Yes Nausea and vomiting: No Pain level: 4 Mental status: Baseline
== END 2021-06-22 09:57 | disposition home or self-care (01) ==
PROVIDERS: PCP Nurse Practitioner Family; Visit Provider Orthopaedic Surgery
PROC: (CPT 63005; principal; 2021-06-22 07:00)
DX: M48.062 Spinal stenosis, lumbar region with neurogenic claudication (principal); I10 Essential (primary) hypertension; E78.5 Hyperlipidemia, unspecified; Z82.49 Family history of ischemic heart disease and other diseases of the circulatory system; Z83.3 Family history of diabetes mellitus
CPT/HCPCS: 63047; 72020; 76000; 93005; J1100; J1170; J2250; J2370; J2405; J2704; J2710; J3490; J7030

== ENCOUNTER → 2021-08-09 12:52 | Outpatient (BNVA) | payer MEDICARE, OTHER, SELFPAY | PROVIDERS: PCP Nurse Practitioner Family; Visit Provider Orthopaedic Surgery | DX: Z47.89 Encounter for other orthopedic aftercare (principal); Z98.890 Other specified postprocedural states | CPT/HCPCS: 99024 ==

== ENCOUNTER → 2021-09-20 10:51 | Outpatient (BNVA) | payer MEDICARE, OTHER, SELFPAY | PROVIDERS: PCP Nurse Practitioner Family; Visit Provider Orthopaedic Surgery | DX: Z47.89 Encounter for other orthopedic aftercare (principal); Z98.890 Other specified postprocedural states; G51.32 Clonic hemifacial spasm, left; B02.29 Other postherpetic nervous system involvement | CPT/HCPCS: 64612; 99213 ==

== ENCOUNTER 2021-12-06 10:31 | Outpatient (CLI) | payer MEDICARE, OTHER, SELFPAY ==
--- NOTE | 2021-12-06 11:00 | MR_ITS ---
WS: [id number] MRI LUMBAR SPINE WITH AND WITHOUT CONTRAST HISTORY: Numbness bilateral legs, pain on the LEFT. Pain into LEFT hip. COMPARISON: 11/07/2020 TECHNIQUE: Sagittal and axial multisequence imaging is submitted. Sagittal and axial T1 fat sat seque nces post-MultiHance 19 cc IV. Anterior cervical fusion at C6-7. Very slight increase in the thoracic kyphosis. 2 mm retrolisthesis of L4. Mild disc desiccation at L4-5 and L5-S1. No acute fractures. No discitis or osteomyelitis. Conus terminates normally at L1-2 disc level. L1-L2: Normal. L2-L3: Mild disc bulging and ligamentum flavum and facet arthritis. Disc encroachment on the ventral thecal sac with mild narrowing of the RIGHT subarticular recess. No change since the prior study. L3-L4: Very mild annular disc bulging with ligamentum flavum and facet arthritis. No stenosis. L4-L5: Mild annular disc bulge with a focal central disc protrusion versus osteophyte and annular fis sure. This disc protrusion is encroaching toward the LEFT exiting L5 nerve root. Mild central canal s tenosis with minimal improvement since the prior study. In the interval small LEFT hemilaminectomy de fect is now evident. Nerve roots are slightly clumped within the thecal sac. There is mild encroachme nt into the central canal by facet disease. There is mild narrowing of the subarticular recesses and LEFT foramen. Mild edema in the interspinous ligaments at the L4 level. Greater on the LEFT than the RIGHT. L5-S1: No stenosis. Paravertebral soft tissues are normal. Enhancement within the surgical bed at the L4-5 level on the LEFT. LEFT hemilaminectomy defect. Enhan cement encases the thecal sac. 5.3 mm cystic collection along the posterior RIGHT lateral thecal sac. On the postcontrast images there is some very mild peripheral enhancement. This may represent a very small postoperative seroma or facet cysts. Tiny abscess is not excluded. MR/MR lumbar spine wo/w con [id number] IMPRESSION: 1. Postoperative LEFT hemilaminectomy changes at L4-5 are new since the prior study of 11/07/2020. No evidence for osteomyelitis or discitis. 2. 5.3 mm collection in the posterior lateral RIGHT thecal sac at the L4-5 lev el. Differential includes a small facet joint cyst, benign postoperative collec tion such as resolving hematoma or a very tiny abscess. 3. Very tiny central disc protrusion or osteophyte at L4-5 with minimal encroa chment towards the exiting L5 nerve root. Mild central stenosis at L4-5. 4. 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 5. Mild narrowing of the RIGHT subarticular recess at L2-3.
[2021-12-06 11:24] LABS: Blood Urea Nitrogen 12 mg/dL (8-23)
[2021-12-06] MEDS: gadobenate dimeglumine 20 mL vial IV (11:54)
== END 2021-12-06 10:32 | disposition home or self-care (01) ==
LOC: RAD 10:32
PROVIDERS: PCP Nurse Practitioner Family; Visit Provider Orthopaedic Surgery
DX: M79.605 Pain in left leg (principal); R20.0 Anesthesia of skin; M48.061 Spinal stenosis, lumbar region without neurogenic claudication; G03.9 Meningitis, unspecified; M48.062 Spinal stenosis, lumbar region with neurogenic claudication
CPT/HCPCS: 72158; 82565; 84520; 99213; 99214

== ENCOUNTER → 2021-12-13 11:51 | Outpatient (BNVA) | payer MEDICARE, OTHER, SELFPAY | PROVIDERS: PCP Nurse Practitioner Family; Visit Provider Specialist | DX: G51.32 Clonic hemifacial spasm, left (principal); B02.29 Other postherpetic nervous system involvement | CPT/HCPCS: 64612; J0585 ==

== ENCOUNTER → 2021-12-25 10:47 | Outpatient (BNVA) | payer MEDICARE, OTHER, SELFPAY | PROVIDERS: PCP Nurse Practitioner Family; Visit Provider Anesthesiology Pain Medicine | DX: Z79.891 Long term (current) use of opiate analgesic (principal); G89.29 Other chronic pain; M51.16 Intervertebral disc disorders with radiculopathy, lumbar region; M48.062 Spinal stenosis, lumbar region with neurogenic claudication; M47.816 Spondylosis without myelopathy or radiculopathy, lumbar region; M50.90 Cervical disc disorder, unspecified, unspecified cervical region; B02.22 Postherpetic trigeminal neuralgia | CPT/HCPCS: 99214 ==

== ENCOUNTER → 2022-01-21 09:58 | Outpatient (BNVA) | payer MEDICARE, OTHER, SELFPAY | PROVIDERS: PCP Nurse Practitioner Family; Visit Provider Anesthesiology Pain Medicine | DX: G89.29 Other chronic pain (principal); M48.062 Spinal stenosis, lumbar region with neurogenic claudication; M51.16 Intervertebral disc disorders with radiculopathy, lumbar region; M47.816 Spondylosis without myelopathy or radiculopathy, lumbar region; M50.90 Cervical disc disorder, unspecified, unspecified cervical region; B02.22 Postherpetic trigeminal neuralgia | CPT/HCPCS: 99214 ==

== ENCOUNTER → 2022-01-31 10:57 | Outpatient (BNVA) | payer MEDICARE, OTHER, SELFPAY | PROVIDERS: PCP Nurse Practitioner Family; Visit Provider Orthopaedic Surgery | DX: M48.062 Spinal stenosis, lumbar region with neurogenic claudication (principal) | CPT/HCPCS: 99214 ==

== ENCOUNTER → 2022-03-07 09:14 | Outpatient (BNVA) | payer MEDICARE, OTHER, SELFPAY | PROVIDERS: PCP Nurse Practitioner Family; Visit Provider Specialist | DX: G51.32 Clonic hemifacial spasm, left (principal); B02.22 Postherpetic trigeminal neuralgia | CPT/HCPCS: 64612; J0585 ==

== ENCOUNTER 2022-03-07 11:33 | Outpatient (CLI) | payer MEDICARE, OTHER, SELFPAY | END 2022-03-07 11:34 | disposition home or self-care (01) | LOC: RT 03-13 11:36 | PROVIDERS: PCP Nurse Practitioner Family; Visit Provider Orthopaedic Surgery | DX: Z01.89 Encounter for other specified special examinations (principal) | CPT/HCPCS: 93005 ==

== ENCOUNTER 2022-03-13 12:43 | Inpatient (IN) | payer MEDICARE, OTHER, SELFPAY ==
[2022-03-07 08:33] VITALS: BMI 25.8
--- NOTE | 2022-03-07 08:46 | ECG_ITS ---
[facility] Test Date: 2022-03-07 Pat Name: Santiago Casey Department: Room: Gender: Male Bariatric Surgeon: : 1950 Requested By: Mignon Moeller Order Number: [id number] Mary MD: Chidi Bell M.D. Measurements Intervals [place] Rate: 63 P: 52 DE: 177 QRS: -24 QRSD: 92 T: 46 QT: 432 QTc: 443 Interpretive Statements SINUS RHYTHM BORDERLINE LEFT AXIS DEVIATION [QRS AXIS < -20] Compared to ECG 06/19/2021 11:26:51 No significant changes Electronically Signed On 03-07-2022 15:07:08 CDT by Chidi Bell M.D. [email or web address]
--- NOTE | 2022-03-07 08:56 | P.ANESASSM_ITS ---
Pre-Anesthetic Assessment Height/Weight: Height 1.78 m Weight 81.647 kg Preop Diagnosis: Lumbar stenosis with neurogenic claudication Operation Date: 03/13/22 09:50 Proposed Procedures p PLIF L4/5 14632/39983/[id number]/08704(Not Applicable) - Jin Yañez DO Familial anesthetic complications: None Social No alcohol and No tobacco Exam alert, oriented x 3, clear to auscultation bilaterally and regular rate & rhythm Airway Dentition: caps Pulmonary None reported CV/HEM Hypertension PVCs Metabolic Hyperlipidemia and Thyroid Disease Musc/skel Lower Back Pain Neuropsych None reported Anesthetic Plan ASA status: 3 Anesthesia: General Risk of > 500 ml blood loss (7ml/kg in children): No Medications/Allergies Home Medications Medication Instructions Recorded Confirmed Last Taken Type cyanocobalamin (vitamin B-12) 100 100 mcg PO DAILY 05/19/19 03/07/22 06/21/21 History mcg tablet (Vitamin B-12) tamsulosin 0.4 mg capsule 0.8 mg PO DAILY 05/19/19 03/07/22 06/20/21 History onabotulinumtoxinA 100 unit 200 unit SUBCUT DIRECTED 05/27/19 02/14/22 Unknown History solution for injection (Botox) finasteride 5 mg tablet 5 mg PO DAILY 02/21/20 03/07/22 06/21/21 History levothyroxine 25 mcg tablet 25 mcg PO DAILY 02/21/20 03/07/22 06/21/21 History simvastatin 20 mg tablet 20 mg PO DAILY 02/21/20 03/07/22 06/21/21 History lisinopril 5 mg tablet See Rx Instructions .Route 08/10/20 03/07/22 06/21/21 Rx .COMPLEX #90 tabs cholecalciferol (vitamin D3) 1,250 50,000 unit PO Q14D 02/14/22 03/07/22 Unknown History mcg (50,000 unit) capsule metoprolol tartrate 25 mg tablet 25 mg PO DAILY 02/14/22 03/07/22 Unknown History Allergies Allergy/AdvReac Type Severity Reaction Status Date / Time NSAIDS (Non-Steroidal Allergy Severe ADR-Nausea Verified 02/07/22 09:22 Anti-Inflamma Penicillins Allergy Severe ALGY-Hives Verified 02/07/22 09:22 SEAFOOD Allergy Severe ADR-Nausea Uncoded 02/07/22 09:22 COUNT INCLUDES THE [facility] Anesthesia Medical History HTN (hypertension) Impingement syndrome, shoulder, left Osteoarthritis Post-herpetic trigeminal neuralgia Shingles Surgical History H/O repair of left rotator cuff History of neck surgery History of shoulder surgery Family History Father Diabetes Brother Diabetes Other Hypertension Denies family history of Stroke Social History Smoking and tobacco status: never smoked Second hand smoke exposure: Yes Alcohol intake: current Alcohol intake frequency: holidays/special occasions only Alcohol type: hard liquor History of recent travel: No Data Anesthesia Cardiac Studies: Sestamibi Stress Test (Cardiology) 04/06
[2022-03-07 09:11] LABS: Basophils # 0.1 10^3/uL (0.0-0.1); Basophils % 0.6 %; Eosinophils # 0.1 10^3/uL (0.0-0.8); Eosinophils % 1.5 %; Hematocrit 48.7 % (42.0-52.0); Hemoglobin 16.3 g/dL (11.7-16.6); Lymphocytes # 1.6 10^3/uL (0.8-4.8); Lymphocytes % 18.2 %; Mean Corpuscular HGB Conc 33.5 g/dL (30.0-36.0); Mean Corpuscular Hemoglobin 30.9 pg (28.0-34.0); Mean Corpuscular Volume 92.2 fl (80-94); Mean Platelet Volume 10.4 fL (7.4-10.4); Monocytes # 0.5 10^3/uL (0.2-0.9); Monocytes % 5.1 %; Neutrophils # 6.62 10^3/uL (1.8-7.7); Nucleated Red Blood Cells % 0 %; Platelet Count 221 10^3/cmm (130-400); Red Blood Count 5.28 10^6/uL (4.1-5.3); Red Cell Distribution Width 13.2 % (12.1-15.1); White Blood Count 8.9 10^3/uL (4.0-10.0)
[2022-03-07 09:29] LABS: Anion Gap 13.9 (5-19); Blood Urea Nitrogen 14 mg/dL (8-23); Calcium 9.2 mg/dL (8.5-10.5); Carbon Dioxide 25 mmol/L (22-29); Chloride 105 mmol/L (98-107); Creatinine Clr Calc Pharmacy 64.6811; Glucose 142 mg/dL (65-115); Osmolality Calculated 293 mOsm/kg (285-295); Potassium 3.9 mmol/L (3.5-5.1); Sodium 140 mmol/L (136-145)
[2022-03-13] VITALS (27 sets, daily range): BP systolic 85–144; BP diastolic 34–84; PULSE 67–106; RESP 10–22; TEMP 36.1–36.7; O2SAT 90–99
--- NOTE | 2022-03-13 | SCC_ITS ---
Procedure done: 1. L4/5 Interbody fusion with posterolateral fusion 2. Instrumentation L4/5 3. Cage at L4/5 4. Laminectomy L4 5. use of autograft from same incision 6. allograft 7. Bone marrow aspirate from right iliac crest 8. use of computer navigation / stereo tactic spine 1 seconds of fluoroscopic guidance, for a cumulative dose of 33 mGy, was provided to Dr. Yañez by the radiology department. C-arm images of the lumbar spine were saved for the patient's permanent record. JOHNNY
--- NOTE | 2022-03-13 | XR_ITS ---
WS: [id number] Lumbar spine, the arm fluoroscopy views, 03/13/2022 Clinical Data: PLIF L4/5 ; or pic Comparison: Lumbar spine, 11/07/2020 Findings: Dr. Yañez performed a posterior lumbar fusion with bilateral pedicle screws at L4-L5. There is a disc spacer at L4-L5. XR/XR lumbar spine 2-3V* [id number] Impression: Posterior lumbar fusion L4-L5.
[2022-03-13] MEDS: sodium chloride 0.9% 1,000 ML 30 ML IV (08:28)
--- NOTE | 2022-03-13 09:12 | PM.HP ---
Providers/Chief Complaint Primary Care Provider: Kriss Betancourt Chief Complaint: PLIF L4/5 History of Present Illness Santiago Casey is a 72 year old male He has a history of a L4/5 laminectomy with patial facetectomy. DOS:06/22/[address] Yañez. He reports lower back pain that has gotten worse. He states his pain is located across his lower back. He reports numbness located in his feet. Review of Systems General: Reports: 10 or more systems reviewed and unremarkable except in HPI and below Const: Denies: fever(s), change in weight or fatigue Eyes: Denies: change in vision, blurry vision, blind spots, photophobia, eye discomfort, seeing flashes or other (Glaucoma) ENMT: Reports: tinnitus and sinus pain; Denies: odynophagia, hoarseness, change in hearing or other (Loss of taste/smell) Card: Denies: chest pain, palpitations, syncope or other (Calf cramps) Resp: Denies: dyspnea, non-productive cough, wheezing or hemoptysis GI: Reports: diarrhea; Denies: abdominal pain, nausea, heartburn, constipation or hematochezia : Denies: urinary frequency or urinary incontinence Musc: Reports: neck pain; Denies: muscle weakness or other (Muscle pain) Skin/Breast: Denies: rash, new lesions or breast mass Neuro: Reports: other (Sleep Apnea); Denies: headache(s), numbness in extremities, weakness in extremities, sensory changes, difficulty walking, Slurred speech present or seizure-like activity Psych: Denies: anxiety, depression, irritability, memory loss, difficulty concentrating or other (Personality changes) Endo: Denies: polyuria, polydipsia, excessive sweating or change in body appearance Seth/Lymph: Denies: easy bruising, easy bleeding or enlarged lymph nodes Medications/Allergies Home Medications Medication Instructions Recorded Confirmed Last Taken Type cyanocobalamin (vitamin B-12) 100 100 mcg PO DAILY 05/19/19 03/13/22 03/13/22 History mcg tablet (Vitamin B-12) tamsulosin 0.4 mg capsule 0.8 mg PO DAILY 05/19/19 03/13/22 03/13/22 History onabotulinumtoxinA 100 unit 200 unit SUBCUT DIRECTED 05/27/19 03/07/22 03/07/22 History solution for injection (Botox) finasteride 5 mg tablet 5 mg PO DAILY 02/21/20 03/13/22 03/13/22 History levothyroxine 25 mcg tablet 25 mcg PO DAILY 02/21/20 03/13/22 03/13/22 History simvastatin 20 mg tablet 20 mg PO DAILY 02/21/20 03/13/22 03/13/22 History lisinopril 5 mg tablet See Rx Instructions .Route 08/10/20 03/13/22 03/12/22 Rx .COMPLEX #90 tabs cholecalciferol (vitamin D3) 1,250 50,000 unit PO Q14D 02/14/22 03/13/22 03/11/22 History mcg (50,000 unit) capsule metoprolol tartrate 25 mg tablet 25 mg PO DAILY 02/14/22 03/13/22 03/13/22 History Intraoperative Neuromonitoring #1 ea 03/11/22 Unknown Rx Allergies Allergy/AdvReac Type Severity Reaction Status Date / Time NSAIDS (Non-Steroidal Allergy Severe ADR-Nausea Verified 03/13/22 08:13 Anti-Inflamma Penicillins Allergy Severe ALGY-Hives Verified 03/13/22 08:13 SEAFOOD Allergy Severe ADR-Nausea Uncoded 03/07/22 09:12 PFSH Acute PFSH: Medical History HTN (hypertension) Impingement syndrome, shoulder, left Osteoarthritis Post-herpetic trigeminal neuralgia Shingles Surgical History H/O repair of left rotator cuff History of neck surgery History of shoulder surgery Family History Father Diabetes Brother Diabetes Other Hypertension Denies family history of Stroke Social History Smoking and tobacco status: never smoked Second hand smoke exposure: Yes Alcohol intake: current Alcohol intake frequency: holidays/special occasions only Alcohol type: hard liquor History of recent travel: No Vitals/I&O/Wt Last Vital Signs Temp 97.7 F 03/13/22 08:18 Pulse 67 03/13/22 08:18 Resp 16 03/13/22 08:18 BP 144/84 03/13/22 08:18 Pulse Ox 97 03/13/22 08:18 O2 Del Method 03/13/22 08:18 Physical Exam Narrative: CONSTITUTIONAL: The patient is a normal appearing [] in no apparent distress. GENERAL: Patient in no acute distress. CARDIAC: Regular rate and rhythm. CHEST: Normal inspiratory effort, normal respiratory rate. ABDOMEN: Soft and nontender. SKIN: Clear, warm and intact. NEURO?PSYCH: The patient is alert and oriented to person, place and time. Sensorv /SILT Motor StrengthShoulder abduction C5 5/5Wrist extension C6 5/5Elbow extension C7 5/5Hand Computer Processing Scheduler C8 5/5Finger abduction T15/5 Radial/ Ulnar/ Median n intact LowerSensory (SILT)Motor StrengthHin flexion L2/3Ant/inner thigh 5/5Hip adduction L2/3 5/5Knee extension L4 Lat thigh, 5/5Toe dorsiflexion L5 5/5Ankle dorsiflexion L5/ Q20Gqhwjws flexion S1 5/5 DTRBleeps 2+Triceps 2+Brachioradialis 2+Patellar 2+Achilles 2+ MUSCULOSKELETAL: [] UPPEREXTREMITIES: The patient had full active ROM in fingers, wrist, elbow, and shoulder. The patient demonstrated ability to fully flex/extend/abduct/adduct fingers, make ok sign, cross 2nd/3rd digits, extend 1st digit fully.. Radial pulse 2+, CR<2 seconds. LOWER EXTREMITIES: Pt has full, active ROM of toes, ankle, knee, and hip. Dorsalis pedis/posterior tibialis pulses 2+, CR<2 seconds. SPINE: Skin warm, dry, intact. Data : 03/07/22 08:37 03/07/22 08:37 A&P Assessment and plan (1) Lumbar stenosis with neurogenic claudication: CONSTITUTIONAL: The patient is a normal appearing [] in no apparent distress. GENERAL: Patient in no acute distress. CARDIAC: Regular rate and rhythm. CHEST: Normal inspiratory effort, normal respiratory rate. ABDOMEN: Soft and nontender. SKIN: Clear, warm and intact. NEURO?PSYCH: The patient is alert and oriented to person, place and time. Sensorv /SILT Motor StrengthShoulder abduction C5 5/5Wrist extension C6 5/5Elbow extension C7 5/5Hand Computer Processing Scheduler C8 5/5Finger abduction T15/5 Radial/ Ulnar/ Median n intact LowerSensory (SILT)Motor StrengthHin flexion L2/3Ant/inner thigh 5/5Hip adduction L2/3 5/5Knee extension L4 Lat thigh, 5/5Toe dorsiflexion L5 5/5Ankle dorsiflexion L5/ [id number] flexion S1 5/5 DTRBleeps 2+Triceps 2+Brachioradialis 2+Patellar 2+Achilles 2+ MUSCULOSKELETAL: [] UPPEREXTREMITIES: The patient had full active ROM in fingers, wrist, elbow, and shoulder. The patient demonstrated ability to fully flex/extend/abduct/adduct fingers, make ok sign, cross 2nd/3rd digits, extend 1st digit fully.. Radial pulse 2+, CR<2 seconds. LOWER EXTREMITIES: Pt has full, active ROM of toes, ankle, knee, and hip. Dorsalis pedis/posterior tibialis pulses 2+, CR<2 seconds. SPINE: Skin warm, dry, intact. Plan L4/5 PLIF Attestations Medical Necessity Statement*: failed conservative tx Coding Level of Care Code Acute [employer] Math [employer] for Chg Fwd Diagnoses Lumbar stenosis with neurogenic claudication M48.062
--- NOTE | 2022-03-13 09:48 | P.ANESUD_ITS ---
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 Proposed Procedure: Operation Date: 03/13/22 09:40 Proposed Procedures p PLIF L4/5 17572/[id number]/[id number](Not Applicable) - Jin Yañez, DO Any changes to Pre-Anesthetic Assessment?: No Last Intake: Intake Last Liquid Date 03/13/22 Last Liquid Time 06:00 Last Solid Date 03/12/22 Last Solid Time 19:00 Vitals: Temperature 97.7 F 03/13/22 08:18 Temperature Source Oral 03/13/22 08:18 Pulse Rate 67 03/13/22 08:18 Pulse Rhythm 03/13/22 08:18 Pulse Strength 3+ Normal 03/13/22 08:18 Respiratory Rate 16 03/13/22 08:18 Blood Pressure 144/84 03/13/22 08:18 Blood Pressure [place] n 104 03/13/22 08:18 Pulse Oximetry 97 03/13/22 08:18 Oxygen Delivery Me thod 03/13/22 08:18 Exam: Pre-Anes Outpt Exam: alert, oriented x 3, clear to auscultation bilaterally and regular rate & rhythm Cardiac Studies: Sestamibi Stress Test (Cardiology) 04/06
[2022-03-13] MEDS: clindamycin 900 MG/50 ML PREMIX 100 MG IV ×2 (10:00→18:16)
[2022-03-13] MEDS: vancomycin 1,000 MG SDV 1000 MG XX (10:39)
[2022-03-13] MEDS: heparin, porcine 1,000 unit/mL INJ 10 mL 10000 UNIT IRRIGATION (10:40)
--- NOTE | 2022-03-13 10:45 | SUR.OPER ---
notified of surgical start.
--- NOTE | 2022-03-13 13:00 | PM.OP ---
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 L4/5 Interbody fusion with posterolateral fusion 2. Instrumentation L4/5 3. Cage at L4/5 4. Laminectomy L4 5. use of autograft from same incision 6. allograft 7. Bone marrow aspirate from right iliac crest 8. use of computer navigation / stereo tactic spine Surgeon: Jin Yañez Convertible Sofa Bedspring Tester: Kimani Yu Convertible Sofa Bedspring Tester: The surgical supplies sterilizer, Kimani Yu, PAC was needed for his expertise under the microscope. He was important and necessary throughout the procedure to complete in a safe and timely manner. He assisted with patient positioning prepping and draping tissue retraction suctioning of the operative field protection of the dural sac and tissue closure Estimated blood loss (mL): 300 Procedure: 1. L4/5 Interbody fusion with posterolateral fusion 2. Instrumentation L4/5 3. Cage at L4/5 4. Laminectomy L4 5. use of autograft from same incision 6. allograft 7. Bone marrow aspirate from right iliac crest 8. use of computer navigation / stereo tactic spine Patient is brought to the operative suite. After undergoing anesthesia, the patient had neuro monitoring attached. Patient was then placed in the prone position on the Augustus table. All areas of impingement were well-padded. Patient was then prepped and draped in the normal sterile fashion. Skin incision was then made over the L4/5 space. Subperiosteal dissection was made out to the transverse processes of L4and L5. Once the exposure was complete attention was then brought to obtaining bone marrow aspirate from the right iliac crest. The DJZ bone marrow aspirate kit was used to aspirate bone marrow aspirate from right iliac crest. This was done by using the sharp probe to open up the bone. Aspiration was performed and then the blunt probe was then used to dissect down to through the bone tunnel. An aspirating well drawn back a millimeter approximately 20 cc of bone marrow aspirate was used. Admixed with the allograft and autograft bone that will be used. Next attention was brought to placing the fiducial for the computer navigation. 2 pins were placed into the iliac crest. These pins were later removed at the end of the case. The fiducial was then attached to these pins. The C-arm was brought in and spun around the patient. The information from the C-arm was loaded in the computer for later use for placing the computer navigated pedicle screws. The technique for placing the pedicle screws was to use a drill followed by the gearshift probe linked to computer navigation. Followed by the ball probe to feel the superior inferior medial lateral johnson of the pedicles. Then placement of the screws using the computer navigation. Was done at each pedicle. Screws were placed at L4 bilaterally and L5 . Next attention was brought to performing the laminectomy ofL4. This was done using the high-speed bur Kerrisons and curettes. Once the lamina was removed and then attention was brought to performing a partial facetectomy on the contralateral side. This was done again using the high-speed bur curettes and Kerrisons. The ligamentum flavum was taken down bilaterally from L4 to L5 this point the scar tissue was significant. However the nerves were decompressed around the scar tissue. Attention was then brought to the facet on the ipsilateral side. The facet was taken down. The L5 nerve was decompressed as it passed around the L5 pedicle. The laminectomy was done for purposes of decompressing the nerve as well as placement of the cage. The L4 nerve was identified as it traversed through the L4 foramen. The thecal sac was identified and retracted. The L4/5 disc base was identified. Using a knife the disc base was opened. And then sequential henry were placed. The first shaver was a 6 and the last shaver was a 13. Using a pituitary and down going curette the endplates were scraped and disc material was removed from the space. Once adequate decompression of the disc base was felt to be had. Osteoamp sponge was packed into the anterior aspect of the disc base. Then a size 13 cage from [employer] was placed after packing osteoamp into the cage. While placing the cage the thecal sac and L5 nerve was protected. C arm was used to ensure that the cages placed in the appropriate position. Attention was then brought to attaching the rods to the screws placed in the L4 and L5 bilaterally. Caps were torqued into position. Locking the construct in place. Wound was copiously irrigated and then attention was brought to decorticating the facets and transverse processes laterally. Bone that was taken down from the lamina was used along with osteoamp fibers and sponges were packed into the lateral gutters along the facet joints. This was done bilaterally. Wound was then closed in a layered fashion starting with the thoracolumbar fascia. 0-vicryl was used the sub cutaneous tissue was closed with 2-0 vicryl and skin with 4-0 monocryl. Glue was then used to seal the skin and a steril dressing was applied. Patient was then placed in the supine position. The endotracheal tube was removed and patient was transferred to the PACU in stable condition.
--- NOTE | 2022-03-13 13:03 | PC.NURSE ---
Airway spit out by patient
--- NOTE | 2022-03-13 13:11 | PC.NURSE ---
Dressing assessment dry and intact. Hemovac draining.
[2022-03-13] MEDS: fentaNYL 50 mcg/mL INJ 2mL IVP ×2 (13:35→13:47)
[2022-03-13] MEDS: HYDROcodone-acetaminophen 5-325 mg Tablet PO ×2 (14:52→21:32)
--- NOTE | 2022-03-13 14:58 | ANE.PACU2 ---
Inpatient post-anesthesia follow up: Airway intact: Yes Vital signs: Temperature 97.5 F Pulse Rate 88 Respiratory Rate 16 Blood Pressure 105/68 Pulse Oximetry 93 Oxygen Delivery Me thod Room Air Oxygen Flow Rate 2 Fraction of Inspir ed Oxygen Hydration adequate: Yes Nausea and vomiting: No Pain level: 3 Mental status: Baseline
[2022-03-13] MEDS: lactated ringers 1,000 ML 90 ML IV (16:26)
[2022-03-13] MEDS: morphine 4 mg/mL SDV 1 mL 2 MG IVP ×2 (16:34→18:22)
--- NOTE | 2022-03-13 18:08 | PC.NURSE ---
Dr. Yañez verbally ordered Mitzy to be Discontinued 03/14/2022 at 0600
[2022-03-13] MEDS: docusate sodium 100 mg Capsule PO (18:16)
[2022-03-14] VITALS (9 sets, daily range): BP systolic 102–131; BP diastolic 63–76; PULSE 72–94; RESP 16–20; TEMP 36.4–36.6; O2SAT 93–97
[2022-03-14] MEDS: morphine 4 mg/mL SDV 1 mL 2 MG IVP ×3 (00:15→20:09)
[2022-03-14] MEDS: clindamycin 900 MG/50 ML PREMIX 100 MG IV ×2 (01:50→10:48)
[2022-03-14] MEDS: HYDROcodone-acetaminophen 5-325 mg Tablet PO ×3 (03:55→14:47)
[2022-03-14] MEDS: lactated ringers 1,000 ML 90 ML IV ×2 (03:55→14:48)
--- NOTE | 2022-03-14 07:34 | P.PN_ITS ---
Subjective Subjective: POD 1 Patient reporting back pain reports some changes in legs. Denies shortness of breath, chest pain, headaches. Vitals/I&O/Wt Last Vital Signs Temp 97.8 F 03/14/22 04:00 Pulse 93 03/14/22 04:00 Resp 17 03/14/22 04:46 BP 131/73 03/14/22 04:00 Pulse Ox 94 03/14/22 04:00 O2 Del Method 03/14/22 04:00 O2 Flow Rate 0.5 03/13/22 16:10 03/13/22 03/14/22 03/14/22 22:59 06:59 14:59 Intake Total 1890 / 3440 1024 / 4464 Output Total 660 / 1160 218 / 1378 Balance 1230 / 2280 806 / 3086 Physical Exam Narrative: Patient presents alert and oriented x3 with a good general appearance normal mood and affect. Normal coordination normal stability. Mild tenderness around the incisional site with the incision appear to be clean and dry with Hemovac intact. No signs of erythema or drainage. No signs of infection. Patient denies any fevers or chills. 5/5 motor strength both lower extremities with negative straight leg raise bilaterally. Calves are supple no medial thigh tenderness. Pulses are 2+ at the dorsalis pedis and posterior tibial region. Good capillary refill throughout normal sensation light touch both lower extremities. Urinary Catheter Management: Forrester: Cath Placed During This Visit: yes, but has since been removed by the nurse Reason for Continuing Indwelling Catheter: Decision to DC Catheter Urinary Catheter Date of Insertion: 03/13/22 Urinary Catheter Time of Insertion: 10:20 Date Urinary Catheter Removed: 03/14/22 Time Urinary Catheter Discontinued: 07:10 Data : 03/07/22 08:37 03/07/22 08:37 A&P Assessment and plan (1) Status post lumbar spinal fusion: We will discontinue Forrester catheter have physical therapy mobilize. Discontinue Hemovac drain after physical therapy visit. We will consult health and social care teacher for placement or home health care. Encourage incentive spirometry for pulmonary toilet. Hopeful discharge tomorrow. Attestations Medical Necessity Statement*: transaction advisory services manager consulted for placement. Coding Level of Care Code Acute Graphic Art Technician for Joshua Billy Diagnoses Status post lumbar spinal fusion Z98.1
[2022-03-14] MEDS: finasteride 5 mg Tablet PO (09:34)
[2022-03-14] MEDS: atorvastatin 40 mg Tablet 20 MG PO (09:34)
[2022-03-14] MEDS: tamsulosin 0.4 mg Capsule 0.8 MG PO (09:34)
[2022-03-14] MEDS: levothyroxine 25 mcg Tablet PO (09:34)
--- NOTE | 2022-03-14 10:28 | PC.NURSE ---
Medication: Spoke with Dr. Yañez regarding hx of low BP after Metoprolol and Lisinopril administration. Per Dr. Yañez, delfino to hold BP meds this AM.
--- NOTE | 2022-03-14 10:32 | PC.CHAP ---
Pastoral Care Encounter/Spiritual Assessment Type of Contact [] Declined resource engineer visit [] Patient/Family/Request visit [] Outpatient visit [] Follow-up visit [] Physician referral [] Code/Alert [x] Routine visit [] Staff referral [] Actively dying [] Patient sleeping [] Family support [] [] Out of room [] Palliative care [] [x] Receiving care in room [] Pre-surgical visit [] Trauma [] Long length of stay [] ICU visit [] Other: Relational/Emotional Strength [x] Patient feels connected with others/family/visitors/staff [] Distress [] Loneliness/isolation [] Abandonment Spirituality of Patient [x] Person of Vee [] Attends Muslim of their Vee [x] Believes in Prayer [] Reads Bible or Scientology materials [] There are Spiritual issues to be addressed Environmental Engineering Manager Interventions [x] Prayer [x] Active listening [x] Non-anxious presence [x] Spiritual/emotional support [] Crisis/trauma care [x] Spiritual counseling [] Bereavement support [] Provided bereavement packet [] Provided Bible/devotional materials [] Provided toy/stuffed animal, coloring book to patient or family member [] Provided Communion [] Anointing/[place] [] Salvation [x] Completed spiritual assessment [] Other: Impact on Illness or Injury [] Angry [] Fearful [] Anxious [] Often cries [] Exhaustion [] Unable to work [] Unable to attend adventist [] Unable to walk/stand [] Unable to read [] Unable to drive [] Unable to eat/drink [] Unable to sleep [] Unable to be with family [] Patient intubated [] Other: Summary has a postive attitude body system waiting on doctors report dealing with a [place] [facility] well go home at some point Time spent with patient 10 mins
[2022-03-15] VITALS: BP 127/82; PULSE 83; RESP 16; TEMP 36.8; O2SAT 94
[2022-03-15] MEDS: HYDROcodone-acetaminophen 5-325 mg Tablet PO ×3 (00:34→10:19)
[2022-03-15] MEDS: lactated ringers 1,000 ML 90 ML IV (02:45)
[2022-03-15 04:00] VITALS: BP 114/73; PULSE 81; RESP 15; TEMP 36.9; O2SAT 94
--- NOTE | 2022-03-15 06:48 | PM.DCS ---
Discharge Providers Date of Admission: 03/13/22 12:43 Date of Discharge: March 15, 2022 Attending Provider at Admission: Jin Yañez DO Attending Provider at Discharge: Jin Yañez DO Primary Care Provider: Kriss Betancourt Diagnoses at Discharge Discharge Diagnosis (1) Status post lumbar spinal fusion: Status: Acute Reason for Visit Reason for Visit: PLIF L4/5 Hospital Course Hospital Course unevetful Physical Exam Narrative: Patient alert and oriented pain controlled was up ambulating yesterday. Urinary Catheter Management: Forrester: Cath Placed During This Visit: yes, but has since been removed by the nurse Reason for Continuing Indwelling Catheter: Decision to DC Catheter Urinary Catheter Date of Insertion: 03/13/22 Urinary Catheter Time of Insertion: 10:20 Date Urinary Catheter Removed: 03/14/22 Time Urinary Catheter Discontinued: 07:10 Discharge Data Studies Completed and Pending Completed Studies During Hospitalization Category Date Time Status XR lumbar spine 2-3V* 11291 Routine Exams 03/13/22 Completed Radiology Impressions Lumbar Spine X-Ray 03/13/22 00:00 Impression: Posterior lumbar fusion L4-L5. Laboratory Results WBC 8.9 10^3/uL (4.0-10.0) 03/07/22 08:37 RBC 5.28 10^6/uL (4.1-5.3) 03/07/22 08:37 Hgb 16.3 g/dL (11.7-16.6) 03/07/22 08:37 Hct 48.7 % (42.0-52.0) 03/07/22 08:37 MCV 92.2 fl (80-94) 03/07/22 08:37 MCH 30.9 pg (28.0-34.0) 03/07/22 08:37 MCHC 33.5 g/dL (30.0-36.0) 03/07/22 08:37 RDW 13.2 % (12.1-15.1) 03/07/22 08:37 Plt Count 221 10^3/cmm (130-400) 03/07/22 08:37 MPV 10.4 fL (7.4-10.4) 03/07/22 08:37 Neut % (Auto) 74.0 % 03/07/22 08:37 Lymph % (Auto) 18.2 % 03/07/22 08:37 [place] % (Auto) 5.1 % 03/07/22 08:37 Eos % (Auto) 1.5 % 03/07/22 08:37 Baso % (Auto) 0.6 % 03/07/22 08:37 Neut # (Auto) 6.62 10^3/uL (1.8-7.7) 03/07/22 08:37 Lymph # (Auto) 1.6 10^3/uL (0.8-4.8) 03/07/22 08:37 [place] # (Auto) 0.5 10^3/uL (0.2-0.9) 03/07/22 08:37 Eos # (Auto) 0.1 10^3/uL (0.0-0.8) 03/07/22 08:37 Baso # (Auto) 0.1 10^3/uL (0.0-0.1) 03/07/22 08:37 Nucleated RBC % (auto) 0 % 03/07/22 08:37 Nucleated RBCs # 0.0 /100WBC 03/07/22 08:37 Sodium 140 mmol/L (136-145) 03/07/22 08:37 Potassium 3.9 mmol/L (3.5-5.1) 03/07/22 08:37 Chloride 105 mmol/L (98-107) 03/07/22 08:37 Carbon Dioxide 25 mmol/L (22-29) 03/07/22 08:37 Anion Gap 13.9 (5-19) 03/07/22 08:37 BUN 14 mg/dL (8-23) 03/07/22 08:37 Creatinine 1.1 mg/dL (0.7-1.2) 03/07/22 08:37 GFR Calculation Not Reportable 03/07/22 08:37 Glucose 142 mg/dL (65-115) H 03/07/22 08:37 Calculated Osmolality 293 mOsm/kg (285-295) 03/07/22 08:37 Calcium 9.2 mg/dL (8.5-10.5) 03/07/22 08:37 Blood Type O Positive 03/13/22 10:00 Rho(D) Type Positive 03/13/22 10:00 Antibody Screen Negative 03/13/22 10:00 Vitals Last Vital Signs Temp 98.5 F 03/15/22 04:00 Pulse 81 03/15/22 04:00 Resp 15 03/15/22 04:00 BP 114/73 03/15/22 04:00 Pulse Ox 94 03/15/22 04:00 O2 Del Method 03/14/22 15:46 O2 Flow Rate 0.5 03/13/22 16:10 Discharge Plan Discharge Patient Disposition: Home Condition: Stable Prescriptions: New hydrocodone-acetaminophen 5-325 mg tablet 1 - 2 tab PO .Q4-6H Qty: 40 0RF Continued metoprolol tartrate 25 mg tablet 25 mg PO DAILY simvastatin 20 mg tablet 20 mg PO DAILY levothyroxine 25 mcg tablet 25 mcg PO DAILY finasteride 5 mg tablet 5 mg PO DAILY lisinopril 5 mg tablet See Rx Instructions .ROUTE .COMPLEX Qty: 90 2RF Dose Instruction: TAKE ONE TABLET BY MOUTH DAILY Rx Instructions: TAKE ONE TABLET BY MOUTH DAILY (DME) Intraoperative Neuromonitoring See Rx Instructions .Route .MEDSUPPLY Qty: 1 0RF Rx Instructions: As directed cyanocobalamin (vitamin B-12) [Vitamin B-12] 100 mcg Tablet 100 mcg PO DAILY tamsulosin 0.4 mg Capsule 0.8 mg PO DAILY Botox 100 unit recon soln 200 unit SUBCUT DIRECTED cholecalciferol (vitamin D3) 1,250 mcg (50,000 unit) capsule 50,000 unit PO Q14D Discharge Orders: Discharge Order (Routine); Ordered 03/15/22 Ordered By: Jin Yañez Discharge Diet: Advance as tolerated Discharge Activity: Limit activity as instructed Patient Instructions: Opioid Safety Activity Restrictions/Additional Instructions: Thank you for [facility] for your care! The following is a list of instructions, from your provider, to follow upon your discharge to ensure you have the optimal recovery from your recent injury orsurgery. Follow-up care is a diaz part of your treatment and safety. Be sure to make and go to all appointments, and call your doctor if you are having problems. If you do not already have a follow-up appointment made, call Dr. Yañez office in the next 1-3 days to make follow up appointment for 1 weeks at [phone]. It is also a good idea to know your test results and keep a list of the medicines you take. Medications will be prescribed for you at your provider's discretion. These medications are to be used as instructed; if they are taken more often that prescribed they will not be refilled early and in most cases will not be refilled at all. > When a refill is needed,you should contact yina kenny 2-3 business days before your prescription runs out. Medications will NOT be refilled by business sales consultant providers after hours! > Many pain medications contain Tylenol (Acetaminophen). Do not consume more than 4,000 mg of Tylenol per day in total with any combination ofmedications. > Pain medications can cause constipation. Please use an over the counter stool softener as directed, while taking pain medications. Consulty our local pharmacist with questions or recommendations on stool softeners. If constipation persists, contact our office or your primary care provider. > While under our care,you are not to receive pain medications or other controlled substances from any other provider unless our office is notified and approves. Any attempts to do so will result in refusal to prescribe any further pain medications and possible dismissal from our practice. ? Your wound and/or dressing should remain clean and dry for 7days until seen in clinic > It is normal for there to be a small amount of discharge (bloody or blood tinged) present from a surgical wound for the first 1-3days. > An increase in redness, swelling, or discharge, a foul odor present around the incision, and/or a fever greater than 101 ?F ? Showering is permitted, however we ask that you do not take a bath, sit in a whirlpool / Jacuzzi, or go swimming for 1 month. For only the first 2 days after surgery, lt wilt be necessary for you to cover your wound/dressing with plastic and tape to keep it dry. ? Walking is essential for the healing process after surgery. We would like you to slowly advance your walking. This should be done on relatively flat clear ground (inside or out) or can be done on a treadmill. Remember this goal does not have to happen all at once, slowly increase your distance and duration. This can be broken into more more than one walk per day as tolerated. Patients who walk as directed after surgery rarely require Physical Therapy. In the unlikely event this issue arises your provider will direct hospital staff to make the appropriate arrangements. ? No lifting over 5 pounds {a gallon of milk) or bending/twisting until further notice. Each of these activities places an unnecessary amount of stress onto the body and can impede the delicate healing process. > Instead of bending at the waist, keep your back straight and bend at the knees. > Instead of twisting your torso, keep your back straight and turn your entire body with your feet. ? You may sleep in any position which makes you comfortable. Many patients find comfort sleeping in a reclining chair. It is not abnormal to have difficulty sleeping for the first several weeks following your surgery. We recommend trying Benadry! or Tylenol PM as directed to help with your sleeping difficulties. Both medications are over the counter and available withoutprescription. ? NO SMOKING!!! Smoking dramatically increases the probability of developing postoperative wound infections. ? Common complaints after lumbar and/or thoracic spine surgery include, but are not limited to: numbness and/or tingling in the legs, pain around the incision and surrounding tissues, muscle spasms, or stiffness of the middle to low back. Contact our office if these symptoms persist or if an acute change occurs. ? No driving for the first 3-5days, and not while taking narcotics until seen at your follow-up appointment and cleared. There are no restrictions for riding on short trips, however if you take a longer trip, arrangements should be made to make regular stops to get out of the vehicle and stretch . ? Swelling is an unfortunate event that will take place with any surgery and is the primary source of your postoperative discomfort. While walking and regular approved activities helps control inflammation, there are additional steps you can take to minimizeswelling. > Place ice over the surgical site and surrounding tissue for twenty minutes, followed by applying a low/medium heat (heating pad) for an additional twenty minutes every 1-2 hours as needed for painrelief. > You may use of over the counter anti-inflammatory medications (Ibuprofen, Motrin, Aleve, Advil, etc) as directed on the package label. These types of medicines wm significantly reduce the amount of discomfort you experience after surgery from swelling. It should be noted that if you have and allergy to any of these medications, or a history of ulcers or kidney disease you should consult you primary care provider prior to starting these medications. Discharge Attestations Time Spent in Discharge Care*: less than 30 min Quality Metrics Clinical Quality Measures [ No reported AMI, CVA or VTE this stay] Coding Level of Care Code Acute Chg FW DC note Diagnoses Status post lumbar spinal fusion Z98.1
[2022-03-15 07:53] VITALS: BP 100/63; PULSE 89; RESP 16; TEMP 36.4; O2SAT 96
[2022-03-15] MEDS: docusate sodium 100 mg Capsule PO (08:30)
[2022-03-15] MEDS: atorvastatin 40 mg Tablet 20 MG PO (08:31)
[2022-03-15] MEDS: finasteride 5 mg Tablet PO (08:31)
[2022-03-15] MEDS: tamsulosin 0.4 mg Capsule 0.8 MG PO (08:31)
[2022-03-15] MEDS: levothyroxine 25 mcg Tablet PO (08:31)
[2022-03-15] MEDS: metoprolol tartrate 25 mg Tablet PO (08:32)
[2022-03-15] MEDS: lisinopril 5 mg Tablet PO (08:32)
--- NOTE | 2022-03-15 11:00 | PC.NURSE ---
Discussed discharge paperwork, New medications and follow up appointments with patient. No questions and verbalized understanding
[2022-03-15 12:00] VITALS: BP 113/72; PULSE 80; RESP 14; TEMP 36.4; O2SAT 93
[2022-03-15 12:27] VITALS: BP 113/72; PULSE 80; RESP 14; TEMP 36.4; O2SAT 93
== END 2022-03-15 12:00 | disposition home or self-care (01) | DRG 455 ==
LOC: MEDSURG 12:45
PROVIDERS: Anesthesiology; Admitting Provider Orthopaedic Surgery; PCP Nurse Practitioner Family; Visit Provider Orthopaedic Surgery
PROC: 0SG00AJ Fusion of Lumbar Vertebral Joint with Interbody Fusion Device, Posterior Approach, Anterior Column, Open Approach (ICD-10-PCS; CPT 22612; principal; 2022-03-13 09:30)
DX: M48.062 Spinal stenosis, lumbar region with neurogenic claudication (principal); I10 Essential (primary) hypertension
CPT/HCPCS: 36415; 51702; 72100; 76000; 80048; 85025; 86850; 86900; 97161; 97530; C1713; J0131; J1100; J1170; J1644; J2270; J2405; J2704; J3010; J3370; J3490; J7030; J7120; P9047

== ENCOUNTER → 2022-03-21 09:04 | Outpatient (BNVA) | payer MEDICARE, OTHER, SELFPAY | PROVIDERS: PCP Nurse Practitioner Family; Visit Provider Physician Assistant | DX: Z47.89 Encounter for other orthopedic aftercare (principal); Z98.1 Arthrodesis status | CPT/HCPCS: 99024 ==

== ENCOUNTER → 2022-03-26 10:21 | Outpatient (BNVA) | payer MEDICARE, OTHER, SELFPAY | PROVIDERS: PCP Nurse Practitioner Family; Visit Provider Physician Assistant | DX: Z98.1 Arthrodesis status (principal); Z47.89 Encounter for other orthopedic aftercare | CPT/HCPCS: 72100; 99024 ==

== ENCOUNTER → 2022-04-23 10:35 | Outpatient (BNVA) | payer MEDICARE, OTHER, SELFPAY | PROVIDERS: PCP Nurse Practitioner Family; Visit Provider Physician Assistant | DX: Z98.1 Arthrodesis status (principal); M48.062 Spinal stenosis, lumbar region with neurogenic claudication | CPT/HCPCS: 72100; 99024 ==

== ENCOUNTER → 2022-05-30 10:31 | Outpatient (BNVA) | payer MEDICARE, OTHER, SELFPAY | PROVIDERS: PCP Nurse Practitioner Family; Visit Provider Physician Assistant | DX: Z98.1 Arthrodesis status (principal); G51.32 Clonic hemifacial spasm, left | CPT/HCPCS: 64612; 72100; 99024; J0585 ==

== ENCOUNTER → 2022-07-11 10:05 | Outpatient (BNVA) | payer MEDICARE, OTHER, SELFPAY | PROVIDERS: PCP Nurse Practitioner Family; Visit Provider Physician Assistant | DX: Z98.1 Arthrodesis status (principal) | CPT/HCPCS: 72100; 99213 ==

== ENCOUNTER 2022-08-06 13:36 | Outpatient (CLI) | payer MEDICARE, OTHER, SELFPAY ==
--- NOTE | 2022-08-06 13:45 | MR_ITS ---
WS: [id number] MRI LUMBAR SPINE NONCONTRAST TECHNIQUE: Sagittal T1, T2 and STIR imaging. Axial T1 and T2 imaging. CLINICAL INFORMATION: pain COMPARISON: MRI December 06, 2021 FINDINGS: Mild lumbar curve. No acute compression. Pedicle screw fixation L4-L5 with interbody fusion graft. No high-grade central canal stenosis. Postoperative changes are new compared to previous. L1-L2: Mild facet arthropathy. Spinal canal and foramen are patent. L2-L3: Mild annular bulging. Moderate facet arthropathy ligament flavum hypertrophy. Mild RIGHT fouzia inal narrowing. This is unchanged from previous. L3-L4: Mild annular bulging with osteophytic ridging. Mild narrowing of the subarticular recess bilat erally. Spinal canal is patent. Mild LEFT foraminal narrowing. This is unchanged. L4-L5: Postoperative changes are new compared to previous. Mild RIGHT foraminal narrowing. Spinal can al and foramen are patent. L5-S1: Annular bulging with osteophytic ridging. Slight effacement of ventral thecal sac. Spinal margoth l and foramen are patent. Visualized pelvic bony structures: Normal. Paravertebral soft tissues: Normal. Postoperative changes ACDF C6-C7 and the cervical spine ror engineer imaging. MR/MR lumbar spine wo con* [id number] IMPRESSION: 1. Postoperative changes pedicle screw fixation L4-L5 with interbody fusion gr aft. This is new compared to the previous MRI. 2. Mild annular bulging L2-L3 L3-L4 with slight effacement of ventral thecal s ac and slight narrowing of subarticular recess is unchanged compared to previou s. 3. Stable mild RIGHT L2-L3 and L3-L4 foraminal narrowing. 4. Mild RIGHT L4-L5 foraminal narrowing. 5. Spinal canal decompressed at L4-L5. 6. No other significant interval changes.
== END 2022-08-06 13:37 | disposition home or self-care (01) ==
LOC: RAD 13:45
PROVIDERS: PCP Nurse Practitioner Family; Visit Provider Physician Assistant
DX: M48.062 Spinal stenosis, lumbar region with neurogenic claudication (principal); Z98.1 Arthrodesis status; Z86.73 Personal history of transient ischemic attack (TIA), and cerebral infarction without residual deficits
CPT/HCPCS: 72148; 99214

== ENCOUNTER → 2022-08-15 10:51 | Outpatient (BNVA) | payer MEDICARE, OTHER, SELFPAY | PROVIDERS: PCP Nurse Practitioner Family; Visit Provider Anesthesiology Pain Medicine | DX: G89.29 Other chronic pain (principal); M48.062 Spinal stenosis, lumbar region with neurogenic claudication; M47.816 Spondylosis without myelopathy or radiculopathy, lumbar region; M51.16 Intervertebral disc disorders with radiculopathy, lumbar region; M50.90 Cervical disc disorder, unspecified, unspecified cervical region; B02.22 Postherpetic trigeminal neuralgia | CPT/HCPCS: 99214 ==

== ENCOUNTER → 2022-08-29 10:58 | Outpatient (BNVA) | payer MEDICARE, OTHER, SELFPAY | PROVIDERS: PCP Nurse Practitioner Family; Visit Provider Specialist | DX: G51.32 Clonic hemifacial spasm, left (principal) | CPT/HCPCS: 64612; J0585 ==

== ENCOUNTER → 2022-09-02 13:51 | Outpatient (BNVA) | payer MEDICARE, OTHER, SELFPAY | PROVIDERS: PCP Nurse Practitioner Family; Visit Provider Anesthesiology Pain Medicine | DX: M47.816 Spondylosis without myelopathy or radiculopathy, lumbar region (principal); M48.062 Spinal stenosis, lumbar region with neurogenic claudication | CPT/HCPCS: 64635; 64636; J1030 ==

== ENCOUNTER 2022-09-20 12:48 | Outpatient (CLI) | payer MEDICARE, OTHER, SELFPAY ==
--- NOTE | 2022-09-20 13:00 | MR_ITS ---
WS: [id number] MRA HEAD TECHNIQUE: Axial 3-D TOF images obtained with axial images and axial, sagittal, and coronal 2-D refor matted images. CLINICAL INFORMATION: I63.9 - Cerebral infarction, unspecified COMPARISON: None. FINDINGS: Dominant distal LEFT vertebral artery. RIGHT vertebral artery ends in PICA. Basilar artery is patent. Persistent LEFT GUEST RELATIONS COORDINATOR. Both ICAs are patent at the skull base. Hypoplastic LEFT A1. Normal vascularity to the DICK and MCA te rritories bilaterally. No evidence of flow-limiting stenosis or aneurysm. MR/MR angio head wo con [id number] IMPRESSION: 1. Dominant distal LEFT vertebral artery. RIGHT vertebral artery ends in PICA. 2. Mild intracranial atheromatous disease. No flow-limiting intracranial steno sis. 3. Hypoplastic LEFT A1 segment. 4. Persistent LEFT GUEST RELATIONS COORDINATOR.
--- NOTE | 2022-09-20 13:45 | MR_ITS ---
WS: [email or web address] MRI HEAD WITHOUT CONTRAST TECHNIQUE: Sagittal T1, T2 axial, T2 axial FLAIR, axial and coronal T1 images, axial susceptibility w eighted imaging, axial diffusion weighted images, and coronal T2 images were obtained. CLINICAL INFORMATION: I63.9 - Cerebral infarction, unspecified COMPARISON: CT 2020 and MRI 2015 FINDINGS: No evidence restricted diffusion to suggest acute ischemia. Ventricular system and basal cisterns are patent. Mild small vessel changes. Moderate parenchymal volume loss. Normal posterior fossa. Normal vascular flow voids at the skull base. No extra-axial fluid collections. No evidence of mass or mass effect. Paranasal sinuses are well aerated. Mastoid air cells are well aerated. No hemosiderin on the susceptibly weighted images. Normal optic chiasm and pituitary infundibulum. No rmal cavernous sinuses and Meckel's cave. Mild to moderate symmetric atrophy temporal lobes and hippo campal formations. MR/MR head wo con* [id number] IMPRESSION: 1. No evidence of restricted diffusion to suggest acute ischemia. 2. Mild small vessel changes with moderate parenchymal volume loss slightly pr ogressed compared to 2017. 3. Mild to moderate symmetric atrophy temporal lobes and hippocampal formation s. 4. No hemosiderin on susceptibly weighted images. 5. No other suspicious findings.
--- NOTE | 2022-09-20 14:30 | MR_ITS ---
WS: [email or web address] MRA CAROTID WITHOUT AND WITH GADOLINIUM ENHANCEMENT TECHNIQUE: Axial 2-D TOF and gadolinium bolus images obtained with axial images and axial, sagittal, and coronal 2-D reformatted images. CLINICAL INFORMATION: I63.9 - Cerebral infarction, unspecified COMPARISON: None. FINDINGS: Dominant LEFT vertebral artery. Hypoplastic RIGHT vertebral artery is patent and ends in PICA. Proxim al basilar artery is patent. Proximal subclavian arteries are patent. Normal branching aortic arch an atomy. RIGHT: RIGHT common carotid artery is patent. No significant RIGHT ICA stenosis. ICA is patent to the skull base. LEFT: LEFT common carotid artery is patent. No significant LEFT ICA stenosis. LEFT ICA is patent to t he skull base. MR/MR angio neck w con* [id number] IMPRESSION: 1. Dominant LEFT vertebral artery. Hypoplastic RIGHT vertebral artery is paten t and ends in PICA. 2. No significant ICA stenosis bilaterally. Both ICAs are patent to the skull base. 3. Normal branching aortic arch anatomy.
[2022-09-20] MEDS: gadobenate dimeglumine 20 mL vial IV (15:09)
== END 2022-09-20 12:49 | disposition home or self-care (01) ==
LOC: RAD 12:54
PROVIDERS: PCP Nurse Practitioner Family; Visit Provider Specialist
DX: I63.9 Cerebral infarction, unspecified (principal); G31.89 Other specified degenerative diseases of nervous system; Q28.3 Other malformations of cerebral vessels
CPT/HCPCS: 70544; 70548; 70551; A9577

== ENCOUNTER → 2022-09-23 12:53 | Outpatient (BNVA) | payer MEDICARE, OTHER, SELFPAY | PROVIDERS: PCP Nurse Practitioner Family; Visit Provider Anesthesiology Pain Medicine | DX: M47.816 Spondylosis without myelopathy or radiculopathy, lumbar region (principal); M48.062 Spinal stenosis, lumbar region with neurogenic claudication | CPT/HCPCS: 64635; 64636; J1030 ==

== ENCOUNTER → 2022-10-08 08:32 | Outpatient (BNVA) | payer MEDICARE, OTHER, SELFPAY | PROVIDERS: PCP Nurse Practitioner Family; Visit Provider Anesthesiology Pain Medicine | DX: G89.29 Other chronic pain (principal); M51.17 Intervertebral disc disorders with radiculopathy, lumbosacral region; M48.062 Spinal stenosis, lumbar region with neurogenic claudication; M51.16 Intervertebral disc disorders with radiculopathy, lumbar region; M47.816 Spondylosis without myelopathy or radiculopathy, lumbar region; M50.90 Cervical disc disorder, unspecified, unspecified cervical region; B02.22 Postherpetic trigeminal neuralgia | CPT/HCPCS: 99214 ==

== ENCOUNTER → 2022-11-12 08:56 | Outpatient (BNVA) | payer MEDICARE, OTHER, SELFPAY | PROVIDERS: PCP Nurse Practitioner Family; Visit Provider Anesthesiology Pain Medicine | DX: G89.29 Other chronic pain (principal); M48.062 Spinal stenosis, lumbar region with neurogenic claudication; M50.90 Cervical disc disorder, unspecified, unspecified cervical region; M51.16 Intervertebral disc disorders with radiculopathy, lumbar region; M47.816 Spondylosis without myelopathy or radiculopathy, lumbar region; B02.22 Postherpetic trigeminal neuralgia | CPT/HCPCS: 99214 ==

== ENCOUNTER → 2022-11-28 14:03 | Outpatient (BNVA) | payer MEDICARE, OTHER, SELFPAY | PROVIDERS: PCP Nurse Practitioner Family; Visit Provider Specialist | DX: G51.32 Clonic hemifacial spasm, left (principal); M50.90 Cervical disc disorder, unspecified, unspecified cervical region; Z98.1 Arthrodesis status; R26.89 Other abnormalities of gait and mobility | CPT/HCPCS: 64612; 99214; J0585 ==

== ENCOUNTER → 2022-12-02 14:54 | Outpatient (BNVA) | payer MEDICARE, OTHER, SELFPAY | PROVIDERS: PCP Nurse Practitioner Family; Visit Provider Internal Medicine Cardiovascular Disease | DX: R00.1 Bradycardia, unspecified (principal); R42 Dizziness and giddiness | CPT/HCPCS: 93225 ==

== ENCOUNTER → 2022-12-16 10:15 | Outpatient (BNVA) | payer MEDICARE, OTHER, SELFPAY | PROVIDERS: PCP Nurse Practitioner Family; Visit Provider Anesthesiology Pain Medicine | DX: M48.062 Spinal stenosis, lumbar region with neurogenic claudication (principal); G89.29 Other chronic pain; B02.22 Postherpetic trigeminal neuralgia; M50.90 Cervical disc disorder, unspecified, unspecified cervical region; M51.16 Intervertebral disc disorders with radiculopathy, lumbar region; M47.816 Spondylosis without myelopathy or radiculopathy, lumbar region; Z98.1 Arthrodesis status | CPT/HCPCS: 99214 ==

== ENCOUNTER → 2023-01-15 09:19 | Outpatient (BNVA) | payer MEDICARE, OTHER, SELFPAY | PROVIDERS: PCP Nurse Practitioner Family; Visit Provider Anesthesiology Pain Medicine | DX: M48.062 Spinal stenosis, lumbar region with neurogenic claudication (principal); G89.29 Other chronic pain; B02.22 Postherpetic trigeminal neuralgia; M50.90 Cervical disc disorder, unspecified, unspecified cervical region; M51.16 Intervertebral disc disorders with radiculopathy, lumbar region; M47.816 Spondylosis without myelopathy or radiculopathy, lumbar region; Z98.1 Arthrodesis status | CPT/HCPCS: 99214 ==

== ENCOUNTER → 2023-01-28 09:21 | Outpatient (BNVA) | payer MEDICARE, OTHER, SELFPAY | PROVIDERS: PCP Nurse Practitioner Family; Visit Provider Anesthesiology Pain Medicine | DX: M79.18 Myalgia, other site (principal); G89.29 Other chronic pain; M48.062 Spinal stenosis, lumbar region with neurogenic claudication; M51.16 Intervertebral disc disorders with radiculopathy, lumbar region; M47.816 Spondylosis without myelopathy or radiculopathy, lumbar region; M50.90 Cervical disc disorder, unspecified, unspecified cervical region; B02.22 Postherpetic trigeminal neuralgia; Z98.1 Arthrodesis status | CPT/HCPCS: 20553; 99214; J1030; J3490 ==

== ENCOUNTER → 2023-02-10 14:04 | Outpatient (BNVA) | payer MEDICARE, OTHER, SELFPAY | PROVIDERS: PCP Nurse Practitioner Family; Visit Provider Nurse Practitioner Family | DX: L57.0 Actinic keratosis (principal); L82.1 Other seborrheic keratosis; D22.5 Melanocytic nevi of trunk; L57.8 Other skin changes due to chronic exposure to nonionizing radiation; L81.4 Other melanin hyperpigmentation | CPT/HCPCS: 17004; 99213 ==

== ENCOUNTER → 2023-02-26 09:52 | Outpatient (BNVA) | payer MEDICARE, OTHER, SELFPAY | PROVIDERS: PCP Nurse Practitioner Family; Visit Provider Anesthesiology Pain Medicine | DX: G89.29 Other chronic pain; M48.062 Spinal stenosis, lumbar region with neurogenic claudication; M47.816 Spondylosis without myelopathy or radiculopathy, lumbar region; M51.16 Intervertebral disc disorders with radiculopathy, lumbar region; M50.90 Cervical disc disorder, unspecified, unspecified cervical region; B02.22 Postherpetic trigeminal neuralgia; Z98.1 Arthrodesis status | CPT/HCPCS: 99214 ==

== ENCOUNTER → 2023-03-10 15:32 | Outpatient (BNVA) | payer MEDICARE, OTHER, SELFPAY | PROVIDERS: PCP Nurse Practitioner Family; Referring Provider Nurse Practitioner Family; Visit Provider Nurse Practitioner Family | DX: M25.561 Pain in right knee (principal); M25.562 Pain in left knee; M79.642 Pain in left hand; S89.82XA Other specified injuries of left lower leg, initial encounter; W18.30XA Fall on same level, unspecified, initial encounter; S89.81XA Other specified injuries of right lower leg, initial encounter | CPT/HCPCS: 73130; 73562 ==

== ENCOUNTER → 2023-03-31 10:32 | Outpatient (BNVA) | payer MEDICARE, OTHER, SELFPAY | PROVIDERS: PCP Nurse Practitioner Family; Visit Provider Anesthesiology Pain Medicine | DX: M48.062 Spinal stenosis, lumbar region with neurogenic claudication (principal); G89.29 Other chronic pain; B02.22 Postherpetic trigeminal neuralgia; M50.90 Cervical disc disorder, unspecified, unspecified cervical region; M51.16 Intervertebral disc disorders with radiculopathy, lumbar region; M47.816 Spondylosis without myelopathy or radiculopathy, lumbar region; Z98.1 Arthrodesis status | CPT/HCPCS: 99214 ==

== ENCOUNTER → 2023-04-03 13:50 | Outpatient (BNVA) | payer MEDICARE, OTHER, SELFPAY | PROVIDERS: PCP Nurse Practitioner Family; Visit Provider Specialist | DX: G51.32 Clonic hemifacial spasm, left (principal); M17.0 Bilateral primary osteoarthritis of knee | CPT/HCPCS: 20610; 64612; 73560; 73565; 95911; 99203; J0585; J3301 ==

== ENCOUNTER → 2023-04-08 10:42 | Outpatient (BNVA) | payer MEDICARE, OTHER, SELFPAY | PROVIDERS: PCP Nurse Practitioner Family; Visit Provider Anesthesiology Pain Medicine | DX: M79.18 Myalgia, other site (principal); G89.29 Other chronic pain; M48.062 Spinal stenosis, lumbar region with neurogenic claudication; M51.16 Intervertebral disc disorders with radiculopathy, lumbar region; M47.816 Spondylosis without myelopathy or radiculopathy, lumbar region; M50.90 Cervical disc disorder, unspecified, unspecified cervical region; B02.22 Postherpetic trigeminal neuralgia; Z98.1 Arthrodesis status | CPT/HCPCS: 20553; 99214; J1030; J3490 ==

== ENCOUNTER → 2023-06-09 11:05 | Outpatient (BNVA) | payer MEDICARE, OTHER, SELFPAY | PROVIDERS: PCP Nurse Practitioner Family; Visit Provider Anesthesiology Pain Medicine | DX: G89.29 Other chronic pain (principal); M47.816 Spondylosis without myelopathy or radiculopathy, lumbar region; M51.16 Intervertebral disc disorders with radiculopathy, lumbar region; M48.062 Spinal stenosis, lumbar region with neurogenic claudication; M50.90 Cervical disc disorder, unspecified, unspecified cervical region; M16.12 Unilateral primary osteoarthritis, left hip; B02.22 Postherpetic trigeminal neuralgia; Z98.1 Arthrodesis status | CPT/HCPCS: 73502; 99214 ==

== ENCOUNTER → 2023-06-23 12:35 | Outpatient (BNVA) | payer MEDICARE, OTHER, SELFPAY | PROVIDERS: PCP Nurse Practitioner Family; Visit Provider Anesthesiology Pain Medicine | DX: G89.29 Other chronic pain; B02.22 Postherpetic trigeminal neuralgia; M50.90 Cervical disc disorder, unspecified, unspecified cervical region; M47.816 Spondylosis without myelopathy or radiculopathy, lumbar region; Z98.1 Arthrodesis status | CPT/HCPCS: 99214 ==

== ENCOUNTER → 2023-07-03 14:39 | Outpatient (BNVA) | payer MEDICARE, OTHER, SELFPAY | PROVIDERS: PCP Nurse Practitioner Family; Visit Provider Specialist | DX: G51.32 Clonic hemifacial spasm, left (principal) | CPT/HCPCS: 64612; J0585 ==

== ENCOUNTER → 2023-07-08 10:15 | Outpatient (BNVA) | payer MEDICARE, OTHER, SELFPAY | PROVIDERS: PCP Nurse Practitioner Family; Visit Provider Physician Assistant | DX: S83.8X2A Sprain of other specified parts of left knee, initial encounter; M17.0 Bilateral primary osteoarthritis of knee; X58.XXXA Exposure to other specified factors, initial encounter | CPT/HCPCS: 99213 ==

== ENCOUNTER → 2023-07-21 12:46 | Outpatient (BNVA) | payer MEDICARE, OTHER, SELFPAY | PROVIDERS: PCP Nurse Practitioner Family; Visit Provider Anesthesiology Pain Medicine | DX: M47.816 Spondylosis without myelopathy or radiculopathy, lumbar region (principal); M48.062 Spinal stenosis, lumbar region with neurogenic claudication | CPT/HCPCS: 64493; 64494; 64495; J3490 ==

== ENCOUNTER 2023-07-31 12:36 | Outpatient (CLI) | payer MEDICARE, OTHER, SELFPAY ==
--- NOTE | 2023-07-31 13:00 | MR_ITS ---
WS: [email or web address] MRI LEFT KNEE HISTORY: knee pain COMPARISON: Radiograph 04/03/2023 Anterior cruciate ligament: Intact. Posterior cruciate ligament: Intact. Medial collateral ligament: Intact. Posterior lateral corner structures: Intact. Medial menisci: Intact. Normal signal, size and shape. Lateral meniscus: Intact. Normal signal, size and shape. Extensor mechanism: Distal quadriceps tendon and patellar tendons are intact. Fluid and soft tissue: Very minimal fluid in the suprapatellar joint space. Small Modi's cyst. Osseous and articular structures: Patellofemoral compartment: Normal. Medial compartment: No significant narrowing of the joint space. Cartilage is intact. Lateral compartment: No significant narrowing of the joint space. Cartilage is intact. IMPRESSION: 1. No meniscal tear. 2. No significant joint space narrowing or osteoarthritis. The cartilage is well-preserved. 3. No significant joint effusion. 4. Very small Modi's cyst.
== END 2023-07-31 12:37 | disposition home or self-care (01) ==
LOC: RAD 12:36
PROVIDERS: PCP Nurse Practitioner Family; Visit Provider Physician Assistant
DX: M25.562 Pain in left knee (principal)
CPT/HCPCS: 73721

== ENCOUNTER → 2023-08-12 08:31 | Outpatient (BNVA) | payer MEDICARE, OTHER, SELFPAY | PROVIDERS: PCP Nurse Practitioner Family; Visit Provider Anesthesiology Pain Medicine | DX: G89.29 Other chronic pain; M48.062 Spinal stenosis, lumbar region with neurogenic claudication; M47.816 Spondylosis without myelopathy or radiculopathy, lumbar region; M50.90 Cervical disc disorder, unspecified, unspecified cervical region; B02.22 Postherpetic trigeminal neuralgia; Z98.1 Arthrodesis status | CPT/HCPCS: 99214 ==

== ENCOUNTER → 2023-08-21 10:38 | Outpatient (BNVA) | payer MEDICARE, OTHER, SELFPAY | PROVIDERS: PCP Nurse Practitioner Family; Visit Provider Nurse Practitioner Family | DX: I10 Essential (primary) hypertension (principal); I49.3 Ventricular premature depolarization; M47.816 Spondylosis without myelopathy or radiculopathy, lumbar region; M48.062 Spinal stenosis, lumbar region with neurogenic claudication | CPT/HCPCS: 64493; 64494; 64495; 99214; J3490 ==

== ENCOUNTER → 2023-09-02 13:00 | Outpatient (BNVA) | payer MEDICARE, OTHER, SELFPAY | PROVIDERS: PCP Nurse Practitioner Family; Visit Provider Student in an Organized Health Care Education/Training Program | DX: M17.0 Bilateral primary osteoarthritis of knee; M16.12 Unilateral primary osteoarthritis, left hip | CPT/HCPCS: 99213 ==

== ENCOUNTER → 2023-09-22 08:40 | Outpatient (BNVA) | payer MEDICARE, OTHER, SELFPAY | PROVIDERS: PCP Nurse Practitioner Family; Visit Provider Anesthesiology Pain Medicine | DX: M48.062 Spinal stenosis, lumbar region with neurogenic claudication (principal); G89.29 Other chronic pain; B02.22 Postherpetic trigeminal neuralgia; M50.90 Cervical disc disorder, unspecified, unspecified cervical region; M47.816 Spondylosis without myelopathy or radiculopathy, lumbar region; Z98.1 Arthrodesis status | CPT/HCPCS: 99214 ==

== ENCOUNTER → 2023-10-02 14:42 | Outpatient (BNVA) | payer MEDICARE, OTHER, SELFPAY | PROVIDERS: PCP Nurse Practitioner Family; Visit Provider Specialist | DX: G51.32 Clonic hemifacial spasm, left (principal) | CPT/HCPCS: 64612; J0585 ==

== ENCOUNTER → 2023-10-07 12:42 | Outpatient (BNVA) | payer MEDICARE, OTHER, SELFPAY | PROVIDERS: PCP Nurse Practitioner Family; Visit Provider Anesthesiology Pain Medicine | DX: M47.816 Spondylosis without myelopathy or radiculopathy, lumbar region (principal); M48.062 Spinal stenosis, lumbar region with neurogenic claudication | CPT/HCPCS: 64635; 64636; J1010 ==

== ENCOUNTER → 2023-10-21 13:25 | Outpatient (BNVA) | payer MEDICARE, OTHER, SELFPAY | PROVIDERS: PCP Nurse Practitioner Family; Visit Provider Anesthesiology Pain Medicine | DX: M47.816 Spondylosis without myelopathy or radiculopathy, lumbar region (principal); M48.062 Spinal stenosis, lumbar region with neurogenic claudication | CPT/HCPCS: 64635; 64636; J1010 ==

== ENCOUNTER → 2023-10-24 08:59 | Outpatient (BNVA) | payer MEDICARE, OTHER, SELFPAY | PROVIDERS: PCP Nurse Practitioner Family; Visit Provider Student in an Organized Health Care Education/Training Program | DX: M16.12 Unilateral primary osteoarthritis, left hip (principal) | CPT/HCPCS: 20610; 77002; 99213; J3301 ==

== ENCOUNTER → 2024-01-15 13:28 | Outpatient (BNVA) | payer MEDICARE, OTHER, SELFPAY | PROVIDERS: PCP Nurse Practitioner Family; Visit Provider Specialist | DX: G51.32 Clonic hemifacial spasm, left (principal) | CPT/HCPCS: 64642; 64644; J0585 ==

== ENCOUNTER → 2024-01-27 15:09 | Outpatient (BNVA) | payer MEDICARE, OTHER, SELFPAY | PROVIDERS: PCP Nurse Practitioner Family; Visit Provider Student in an Organized Health Care Education/Training Program | DX: M17.0 Bilateral primary osteoarthritis of knee (principal) | CPT/HCPCS: 99213 ==

== ENCOUNTER 2024-02-05 15:01 | Outpatient (CLI) | payer OTHER, SELFPAY ==
--- NOTE | 2024-02-05 15:09 | USR_ITS ---
PROCEDURE INFORMATION: Exam: US Scrotum and US Duplex Artery and Vein, Scrotum, Complete Exam date and time: 02/05/2024 3:11 PM Age: 74 years old Clinical indication: Scrotum pain TECHNIQUE: Imaging protocol: Real-time ultrasound of the scrotum. Real-time duplex ultrasound scan of the arterial and venous flow of the scrotum with B-mode, color Doppler flow and spectral waveform analysis. Complete exam. Duplex exam was performed to evaluate for torsion and other vascular conditions. COMPARISON: No relevant prior studies available. FINDINGS: Right: The right testicle measures 30 x 13 x 22 mm, estimated volume 4.6 cc. No visible intratesticular mass. Duplex Doppler evaluation, with color flow and spectral waveform analysis, demonstrates intratesticular arterial and venous blood flow. The right epididymis is normal in size and appearance. There is no significant right scrotal fluid. Left: The left testicle measures 25 x 14 x 19 mm, estimated volume 3.5 cc. No visible intratesticular mass. Duplex Doppler evaluation, with color flow and spectral waveform analysis, demonstrates intratesticular arterial and venous blood flow. The body and tail of the left epididymis may be somewhat prominent in size, but there is no significantly increased blood flow to strongly suggest epididymitis. Clinical correlation still recommended. There is no significant left scrotal fluid. US/US scrotum [id number] IMPRESSION: 1. No evidence for torsion by Doppler ultrasound. 2. The left epididymis may be somewhat prominent , but there is no increased blood flow to strongly suggest epididymitis. See above. 3. Other details discussed above.
== END 2024-02-05 15:02 | disposition home or self-care (01) ==
PROVIDERS: PCP Nurse Practitioner Family; Visit Provider Nurse Practitioner
DX: R93.89 Abnormal findings on diagnostic imaging of other specified body structures (principal)
CPT/HCPCS: 76870

== ENCOUNTER → 2024-02-11 13:00 | Outpatient (BNVA) | payer OTHER, SELFPAY | PROVIDERS: PCP Nurse Practitioner Family; Visit Provider Nurse Practitioner Family | DX: L82.1 Other seborrheic keratosis (principal); D22.5 Melanocytic nevi of trunk; L57.8 Other skin changes due to chronic exposure to nonionizing radiation; L81.4 Other melanin hyperpigmentation; L85.3 Xerosis cutis; L57.0 Actinic keratosis | CPT/HCPCS: 17000; 99213 ==

== ENCOUNTER → 2024-02-24 08:00 | Outpatient (BNVA) | payer OTHER, SELFPAY | PROVIDERS: PCP Nurse Practitioner Family; Visit Provider Physician Assistant | DX: M17.0 Bilateral primary osteoarthritis of knee (principal) | CPT/HCPCS: 20610; 99213; J7318 ==

== ENCOUNTER 2024-03-02 11:54 | Outpatient (CLI) | payer OTHER, SELFPAY ==
--- NOTE | 2024-03-02 11:57 | MR_ITS ---
WS: [email or web address] MRI THORACIC SPINE WITHOUT CONTRAST TECHNIQUE: Sagittal T1, T2 and STIR imaging. Axial T2 imaging. Noncontrast imaging obtained. CLINICAL INFORMATION: DDD COMPARISON: None. FINDINGS: Mild thoracic curve. Mild thoracic kyphosis. No acute compression. No high-grade central canal stenos is. Cord signal is normal. Mild facet arthropathy lower thoracic spine. ACDF C6-7. Mild RIGHT T10-11 bony foraminal narrowing. Slightly dilated ascending thoracic aorta measuring 3.5 cm. MR/MR thoracic spin wo con* [id number] IMPRESSION: 1. Mild thoracic curve. Mild thoracic kyphosis. 2. No acute compression. No significant central canal stenosis. 3. Cord signal is normal. 4. Mild RIGHT T10-11 bony foraminal narrowing.
--- NOTE | 2024-03-02 11:57 | MR_ITS ---
WS: [email or web address] MRI LUMBAR SPINE NONCONTRAST TECHNIQUE: Sagittal T1, T2 and STIR imaging. Axial T1 and T2 imaging. CLINICAL INFORMATION: DDD COMPARISON: MRI lumbar 08/06/2022 FINDINGS: Mild lumbar curve. No acute compression. Pedicle screw fixation L4-5 with interbody fusion graft. L1-L2: Moderate facet arthropathy. Spinal canal and foramen are patent. L2-L3: Mild annular bulging. Moderate facet arthropathy. Slight narrowing of the RIGHT subarticular r ecess. Mild RIGHT foraminal narrowing. L3-L4: Mild annular bulging. Slight narrowing subarticular recess. Mild LEFT foraminal narrowing. Mod erate facet arthropathy. L4-L5: Pedicle screw fixation with interbody fusion. Mild RIGHT and no significant LEFT foraminal danis rowing. Laminectomy defects. L5-S1: Mild disc bulging with slight effacement of the ventral thecal sac. Moderate facet arthropathy . Spinal canal and foramen are patent. Visualized pelvic bony structures: Normal. Paravertebral soft tissues: Normal. MR/MR lumbar spine wo con* [id number] IMPRESSION: Overall no significant changes compared to previous. 1. Postoperative changes pedicle screw fixation L4-5 with interbody fusion gra ft unchanged from previous. 2. Mild annular bulge L2-3 with mild central canal stenosis and narrowing of t he subarticular recess unchanged. 3. Mild RIGHT L2-3 and RIGHT L4-5 foraminal narrowing unchanged. 4. Spinal canal is patent at the fusion level with laminectomy defects L4-5.
== END 2024-03-02 11:55 | disposition home or self-care (01) ==
LOC: RAD 11:55
PROVIDERS: PCP Nurse Practitioner Family; Visit Provider Physician Assistant
DX: M51.360 Other intervertebral disc degeneration, lumbar region with discogenic back pain only (principal); M96.1 Postlaminectomy syndrome, not elsewhere classified; M47.896 Other spondylosis, lumbar region; M43.26 Fusion of spine, lumbar region
CPT/HCPCS: 72146; 72148

== ENCOUNTER → 2024-04-23 13:38 | Outpatient (BNVA) | payer MEDICARE, OTHER, SELFPAY | PROVIDERS: PCP Nurse Practitioner Family; Visit Provider Specialist | DX: G51.32 Clonic hemifacial spasm, left (principal) | CPT/HCPCS: 64612; J0585 ==

== ENCOUNTER → 2024-06-15 09:31 | Outpatient (BNVA) | payer MEDICARE, OTHER, SELFPAY | PROVIDERS: PCP Nurse Practitioner Family; Visit Provider Internal Medicine Cardiovascular Disease | DX: I49.3 Ventricular premature depolarization (principal); I10 Essential (primary) hypertension; R00.1 Bradycardia, unspecified; Z87.898 Personal history of other specified conditions | CPT/HCPCS: 99214 ==

== ENCOUNTER → 2024-06-17 12:49 | Outpatient (BNVA) | payer MEDICARE, OTHER, SELFPAY | PROVIDERS: PCP Nurse Practitioner Family; Visit Provider Internal Medicine Cardiovascular Disease | DX: R42 Dizziness and giddiness (principal) | CPT/HCPCS: 93229 ==

== ENCOUNTER 2024-07-12 08:40 | Outpatient (CLI) | payer MEDICARE, OTHER, SELFPAY ==
--- NOTE | 2024-07-12 09:15 | USCV_ITS ---
Santiago Casey Age: 74 Gender: M : 1950 Exam Date: 07/12/2024 09:13 Ordering Phys: Anahy Hackett MD ([email or web address]) Technologist: Exam Location: [facility] [place] Indication: cp murmur BP: 130 / 80 HR: 54 Rhythm: Sinus Technical Quality: Adequate MEASUREMENTS (Male / Female) Normal Values 2D ECHO LV Diastolic Diameter PLAX 4.2 cm 4.2 - 5.9 / 3.9 - 5.3 cm IVS Diastolic Thickness 1.5 cm 0.6 - 1.0 / 0.6 - 0.9 cm IVS Systolic Thickness 1.6 cm LVPW Diastolic Thickness 1.4 cm 0.6 - 1.0 / 0.6 - 0.9 cm LVPW Systolic Thickness 2.0 cm LVOT Diameter 2.3 cm LV Ejection Fraction 2D Teich 59.3 % LV Ejection Fraction MOD 4C 60.5 % LV Ejection Fraction MOD 2C 46.3 % LV Ejection Fraction 2C AL 44.7 % LA Diameter 3.5 cm RA Systolic Volume 4C AL 15.0 ml RA Systolic Volume 4C MOD 14.7 ml Aorta at Sinotubular Diameter 3.0 cm M-MODE LA Ao Ratio MM 1.2 AV Cusp Separation MM 2.0 cm DOPPLER AV Peak Velocity 241.2 cm/s LVOT Peak Velocity 78.0 cm/s AV Area Cont Eq vti 2.0 cm squared AV Area Cont Eq pk 1.3 cm squared MV Peak Velocity 89.0 cm/s MV Area PHT 3.3 cm squared Mitral E to A Ratio 1.0 TV Peak Velocity 231.0 cm/s TR Peak Velocity 262.0 cm/s TR Peak Gradient 27.5 mmHg TV Peak E Velocity 91.0 cm/s PV Peak Velocity 56.0 cm/s FINDINGS Left Ventricle Normal left ventricular size, systolic function and wall thickness, with no regional wall motion abnormalities. Left ventricular ejection fraction is estimated at 60 %. Grade I/IV diastolic dysfunction (abnormal relaxation filling pattern), normal to mildly elevated filling pressures. Right Ventricle The right ventricle is normal in size and function. Right Atrium The right atrium is normal in size. Left Atrium The left atrium is normal in size. Mitral Valve Moderately thickened mitral valve. Mitral annular calcification. No mitral valve stenosis. Mild mitral valve regurgitation. Aortic Valve Moderate aortic valve calcification. No aortic valve stenosis. Trace aortic valve regurgitation. Tricuspid Valve Structurally normal tricuspid valve without significant stenosis or regurgitation. Pulmonary artery systolic pressure is normal. Pulmonic Valve Structurally normal pulmonic valve without significant stenosis. There is no pulmonic regurgitation. Pericardium Normal pericardium without effusion. Aorta Normal ascending aorta dimension. IVC The inferior vena cava appears normal. CONCLUSIONS Normal left ventricular size, systolic function and wall thickness, with no regional wall motion abnormalities. Left ventricular ejection fraction is estimated at 60 %. Grade I/IV diastolic dysfunction (abnormal relaxation filling pattern), normal to mildly elevated filling pressures. There is no pericardial effusion. No significant valve abnormalities. Right atrial pressure is around 5 mm of mercury. Soni Grider MD (Electronically Signed) Final Date: 21 July 2024 17:40 S
== END 2024-07-12 08:41 | disposition home or self-care (01) ==
LOC: RAD 08:41
PROVIDERS: PCP Nurse Practitioner Family; Visit Provider Internal Medicine Cardiovascular Disease
DX: R06.09 Other forms of dyspnea (principal)
CPT/HCPCS: 93306

== ENCOUNTER 2024-07-22 12:09 | Outpatient (CLI) | payer MEDICARE, OTHER, SELFPAY ==
--- NOTE | 2024-07-22 12:13 | CT_ITS ---
WS: [email or web address] CT CERVICAL SPINE HISTORY: CERVICALGIA/UNSPECIFIED FALL TECHNIQUE: Contiguous 2.0 mm axial imaging performed through the entire cervical spine. Sagittal and coronal reformats also performed. All CT scans at [facility] use at least one of these dose optimization techniques: automated exposure control; mA and/or kV adjustment per patient size (includes targeted exams where dose is matched to clinical indication); or iterative reconstruction. DLP: 144.57 mGy.cm COMPARISON: None available. Patient's head is tilted and rotated to the RIGHT. Prior anterior cervical fusion at C6-7 with interbody fusion. Hardware appears intact. Craniocervical junction is normal. Lateral masses of C1 and C2 are aligned. The odontoid is intact. Acute cervical spine fracture identified at the C6-7 level involving the posterior elements. Nondisplaced fracture noted through the RIGHT superior articular facet of C7. Nondisplaced fracture involving the RIGHT lamina of C6. Additional nondisplaced fracture involving the base of the LEFT C7 pedicle. Fracture extends along the posterior C7 vertebral body elevating the cortex. C7 fracture also extends into the inferior articular facet on the LEFT of C7. There is mild asymmetry and widening of the facet joints including C5-6, C6-7 and C7-T1. This is only minimal asymmetry but with fractures interspinous ligamentous injury needs to be considered. There is mild asymmetry of the RIGHT T2-3 facet joint but this does not appear to be acute. C2-C3: Normal. C3-C4: Normal. C4-C5: Normal. C5-C6: Mild facet arthritis. C6-C7: Mild foraminal narrowing. No acute disc protrusions. C7-T1: Normal. Biapical pleural thickening. CT/CT cervical spin wo con* [id number] IMPRESSION: 1. Acute cervical spine fracture. 2. Nondisplaced fracture superior RIGHT articular facet of C7. 3. Nondisplaced fracture C6 RIGHT lamina. 4. Nondisplaced fracture involving the base of the LEFT C7 pedicle. Fracture e xtends along the posterior C7 vertebral body elevating the cortex. 5. C7 fracture also extends along the LEFT inferior articular facet. 6. There is mild asymmetry involving the facet joints at C5-6, C6-7 and C7-T1. Intraspinous ligamentous injury needs to be considered. MRI cervical spine rec ommended to evaluate for ligamentous injury. 7. No high-grade central stenosis. 8. Prior anterior cervical fusion with interbody spacer at C6-7. Emergency department is notified at the time of this dictation that the patient will be arriving with the cervical spine fracture. C-collar was placed on the patient in the radiology department.
--- NOTE | 2024-07-22 12:13 | CT_ITS ---
WS: [email or web address] CT HEAD WITH AND WITHOUT CONTRAST HISTORY: LOCALIZED SWELLING,MASS, LUMP POSTERIOR HEAD TECHNIQUE: Noncontrast 3.0 mm axial images obtained from the vertex to the skull base. Additional imaging performed at 2.5 mm axial images status post IV contrast. Bone and soft tissue windows are reviewed. All CT scans at [facility] use at least one of these dose optimization techniques: automated exposure control; mA and/or kV adjustment per patient size (includes targeted exams where dose is matched to clinical indication); or iterative reconstruction. CONTRAST: Omnipaque 350; 100 mL IV. DLP: 2156.61 mGy.cm COMPARISON: 02/05/2021 No acute intracranial hemorrhage, edema or midline shift. Mild symmetric atrophy and small vessel disease. Normal size ventricles. No enhancing mass or vascular malformations identified. Dural venous sinuses are normally enhancing. Visualized [place] of [place] is unremarkable. Paranasal sinuses as visualized: Clear. Mastoid air cells: Clear. Calvarium and scalp: Intact. Minimal soft tissue stranding over the RIGHT occipital region consistent with soft tissue contusion. CT/CT head wo/w con [id number] IMPRESSION: 1. No acute intracranial hemorrhage or edema. 2. No enhancing masses. 3. Mild cerebral atrophy and small vessel disease.
[2024-07-22 13:19] LABS: Blood Urea Nitrogen 12 mg/dL (8-23)
[2024-07-22] MEDS: iohexol 350 mg/mL 500 mL Btl (per mL) IV (14:09)
== END 2024-07-22 12:10 | disposition home or self-care (01) ==
PROVIDERS: PCP Nurse Practitioner Family
DX: S12.501A Unspecified nondisplaced fracture of sixth cervical vertebra, initial encounter for closed fracture (principal); G31.89 Other specified degenerative diseases of nervous system; R93.0 Abnormal findings on diagnostic imaging of skull and head, not elsewhere classified; Z98.1 Arthrodesis status; S12.601A Unspecified nondisplaced fracture of seventh cervical vertebra, initial encounter for closed fracture; W19.XXXA Unspecified fall, initial encounter; R93.7 Abnormal findings on diagnostic imaging of other parts of musculoskeletal system; M53.82 Other specified dorsopathies, cervical region; M53.83 Other specified dorsopathies, cervicothoracic region; M53.84 Other specified dorsopathies, thoracic region; M47.892 Other spondylosis, cervical region; M48.02 Spinal stenosis, cervical region; J92.9 Pleural plaque without asbestos
CPT/HCPCS: 70470; 72125; 82565; 84520

== ENCOUNTER 2024-07-22 13:51 | Emergency (ER) | payer MEDICARE, OTHER, SELFPAY ==
[2024-07-22] VITALS (9 sets, daily range): BP systolic 147–175; BP diastolic 69–110; PULSE 58–71; RESP 16–18; TEMP 36.4; O2SAT 91–99
--- NOTE | 2024-07-22 14:04 | W.ED.NECK ---
HPI - Neck Pain/Injury General: Chief Complaint: Neck Pain/Injury Stated Complaint: neck fx Time Seen by Provider: 07/22/24 13:57 Source: patient Mode of arrival: EMS Limitations: no limitations History of Present Illness: Patient is a nice 74-year-old male who presents to the ED today from outpatient CT where he was receiving a CT scan of his head/cervical spine and was told he had a neck fracture and to go to the ED. patient states on Friday he was in [place] visiting family for [place] and states he fell in the middle of the night trying to use the restroom. He states he struck the back of his head. Patient states he followed up with his primary care provider yesterday who ordered outpatient imaging of his head and cervical spine. He denies any other injuries during his fall. He has been ambulatory without difficulty or assistance since the fall. MD complaint: neck pain and neck injury Onset (ago): day(s) Place: other (family's house) Severity: moderate Duration: constant Context: fall Associated symptoms: Reports no associated symptoms and headache(s); Denies difficulty walking or nausea Related Data Home Medications ?Medication ?Instructions ?Recorded ?Confirmed cyanocobalamin (vitamin B-12) 100 100 mcg PO DAILY 05/19/19 07/22/24 mcg tablet (Vitamin B-12) onabotulinumtoxinA 100 unit 200 unit SUBCUT DIRECTED 05/27/19 07/22/24 solution for injection (Botox) finasteride 5 mg tablet 5 mg PO DAILY 02/21/20 07/22/24 levothyroxine 25 mcg tablet 25 mcg PO DAILY 02/21/20 07/22/24 simvastatin 20 mg tablet 20 mg PO DAILY 02/21/20 07/22/24 cholecalciferol (vitamin D3) 1,250 50,000 unit PO Q14D 02/14/22 07/22/24 mcg (50,000 unit) capsule magnesium oxide 400 mg PO DAILY 11/14/22 07/22/24 aspirin 81 mg tablet,delayed 81 mg PO DAILY 06/15/24 07/22/24 release (Adult Aspirin Regimen) ascorbic acid (vitamin C) 1,000 mg 1 g PO DAILY 07/22/24 07/22/24 tablet (Vitamin C) Previous Rx's ?Medication ?Instructions ?Recorded Intraoperative Neuromonitoring #1 ea 03/11/22 Hinged Knee Brace #1 ea 04/03/23 metoprolol tartrate 25 mg tablet 25 mg PO BID #180 tabs 08/21/23 hydrocodone 7.5 mg-acetaminophen 1 tab PO Q4H PRN pain #20 tabs 07/22/24 325 mg tablet Allergies Allergy/AdvReac Type Severity Reaction Status Date / Time NSAIDS (Non-Steroidal Allergy Severe ADR-Nausea Verified 06/15/24 09:55 Anti-Inflamma Penicillins Allergy Severe ALGY-Hives Verified 06/15/24 09:55 SEAFOOD Allergy Severe ADR-Nausea Uncoded 06/15/24 09:55 Review of Systems Const: Denies: fever(s) Eyes: Denies: change in vision, blurry vision, photophobia, floaters or seeing flashes Card: Denies: chest pain Resp: Denies: dyspnea GI: Denies: abdominal pain, nausea or vomiting Musc: Reports: neck pain; Denies: back pain, extremity pain, extremity swelling, joint pain or joint swelling Skin/Breast: Denies: rash Neuro: Reports: headache(s); Denies: numbness in extremities, weakness in extremities, sensory changes or difficulty walking PFSH ED PFSH: Medical History Shingles Post-herpetic trigeminal neuralgia Osteoarthritis Impingement syndrome, shoulder, left HTN (hypertension) Surgical History History of neck surgery H/O repair of left rotator cuff History of shoulder surgery Family History Father Diabetes Brother Diabetes Other Hypertension Denies family history of Stroke Social History Smoking and tobacco/nicotine status: never used tobacco/nicotine Second hand smoke exposure: Yes Alcohol intake: current Alcohol intake frequency: holidays/special occasions only Alcohol type: hard liquor Substance/Drug Use: never Physical Exam Const: COMMON NORMALS: no acute distress, average body habitus, patient oriented x3, no limitations, healthy appearing, alert and well nourished GENERAL APPEARANCE: cooperative ORIENTATION/CONSCIOUSNESS: Yes awake, Yes oriented to person, Yes oriented to place and Yes oriented to time HENMT: COMMON NORMALS: normocephalic and atraumatic HEAD & SCALP: normal to inspection, normocephalic and atraumatic FACE & SINUS: normal facial exam Eye: GENERAL EYE: appearance normal, both eyes and all related structures Neck/C-Spine: OTHER: arrives in c-collar; no removed for ROM testing due to reported fracture Resp: COMMON NORMALS: normal respiratory effort and clear to auscultation bilaterally AUSCULTATION: clear to auscultation bilaterally Cardio: COMMON NORMALS: regular rate and regular rhythm RATE: regular rate RHYTHM: regular rhythm Back/Pelvis: COMMON NORMALS: thoracic and lumbar spine normal to inspection, thoraco-lumbar ROM normal and straight leg raise negative bilaterally THORACIC SPINE/UPPER BACK: No thoracic spinal tenderness LUMBAR SPINE/LOWER BACK: No lumbar spinal tenderness Extremity: COMMON NORMALS: normal to inspection, full ROM and capillary refill normal GENERAL: Yes normal exam except as noted Neuro: COMMON NORMALS: patient oriented x3, moves all extremities, no focal motor deficits and no sensory deficits noted SENSORIUM/ORIENTATION: Yes alert, Yes oriented to person, Yes oriented to place and Yes oriented to time Course Consultations: Consultation #1: Dr. Yañez-reviewed CT findings and recommending MRI cervical without contrast; later reviewed findings of cervical MRI; recommend rigid cervical collar and he will see in office on Friday Vital Signs: Vital signs: Vital Signs Temperature 97.6 F 07/22/24 14:04 Pulse Rate 69 07/22/24 18:30 Respiratory Rate 18 07/22/24 14:04 Blood Pressure 168/95 07/22/24 18:30 Pulse Oximetry 91 07/22/24 18:30 Oxygen Delivery Me thod Room Air 07/22/24 18:30 MDM - Neck Pain/Injury Medical Decision Making Patient here for evaluation following a fall that occurred on Friday. He was over an outpatient CT and they recognized a cervical fracture and placed patient in a c-collar and brought him to the emergency department. Patient is not having any acute neurologic deficits. CT findings were reviewed with Dr. Yañez. He had recommended MRI imaging so this was obtained. Findings of MRI were also reviewed with him. He is recommending patient be placed in a rigid cervical collar and he will follow-up with patient on Friday. Return precautions discussed. He was given strict instructions not to remove cervical collar. Medical Records I reviewed the patient's medical records. Lab Data Radiology Impressions Cervical Spine MRI 07/22/24 14:44 IMPRESSION: Acute fractures in the posterior elements of C6 and C7 are not associated with significant bone marrow edema. There are acute fractures in T3 with no compression and T1 with mild anterior wedging. Edema in the interspinous ligament at C6-C7 level, and possibly at T1-2 level suggestive of acute injury. Trace amount of prevertebral fluid between C4 and T3 levels. Normal alignment of the cervical and visualized upper thoracic spine. All radiology interpretation(s) finalized by discharge ED provider radiology interpretation(s): CT/CT cervical spin wo con* [id number] IMPRESSION: 1. Acute cervical spine fracture. 2. Nondisplaced fracture superior RIGHT articular facet of C7. 3. Nondisplaced fracture C6 RIGHT lamina. 4. Nondisplaced fracture involving the base of the LEFT C7 pedicle. Fracture extends along the posterior C7 vertebral body elevating the cortex. 5. C7 fracture also extends along the LEFT inferior articular facet. 6. There is mild asymmetry involving the facet joints at C5-6, C6-7 and C7-T1. Intraspinous ligamentous injury needs to be considered. MRI cervical spine recommended to evaluate for ligamentous injury. 7. No high-grade central stenosis. 8. Prior anterior cervical fusion with interbody spacer at C6-7. Discharge Plan Discharge Patient Disposition: Home Clinical Impression: Compression fracture of T1 vertebra Qualifiers: Encounter type: initial encounter Qualified Code(s): S22.010A - Wedge compression fracture of first thoracic vertebra, initial encounter for closed fracture Closed T3 fracture Qualifiers: Encounter type: initial encounter Fracture morphology: unspecified fracture morphology Qualified Code(s): S22.039A - Unspecified fracture of third thoracic vertebra, initial encounter for closed fracture C7 cervical fracture Qualifiers: Encounter type: initial encounter Fracture type: closed Fracture morphology: unspecified fracture morphology Fracture alignment: nondisplaced Qualified Code(s): S12.601A - Unspecified nondisplaced fracture of seventh cervical vertebra, initial encounter for closed fracture Closed C6 fracture Qualifiers: Encounter type: initial encounter Fracture morphology: unspecified fracture morphology Fracture alignment: nondisplaced Qualified Code(s): S12.501A - Unspecified nondisplaced fracture of sixth cervical vertebra, initial encounter for closed fracture Fracture of pedicle of cervical vertebra Qualifiers: Encounter type: initial encounter Qualified Code(s): S12.9XXA - Fracture of neck, unspecified, initial encounter Condition: Stable Prescriptions: New hydrocodone-acetaminophen 7.5-325 mg tablet 1 tab PO Q4H PRN (Reason: pain) Qty: 20 0RF No Action simvastatin 20 mg tablet 20 mg PO DAILY levothyroxine 25 mcg tablet 25 mcg PO DAILY finasteride 5 mg tablet 5 mg PO DAILY (DME) Hinged Knee Brace See Rx Instructions .Route .MEDSUPPLY Qty: 1 0RF Rx Instructions: As directed aspirin [Adult Aspirin Regimen] 81 mg tablet,delayed release (DR/EC) 81 mg PO DAILY magnesium oxide 400 mg magnesium capsule 400 mg PO DAILY metoprolol tartrate 25 mg tablet 25 mg PO BID Qty: 180 3RF (DME) Intraoperative Neuromonitoring See Rx Instructions .Route .MEDSUPPLY Qty: 1 0RF Rx Instructions: As directed cyanocobalamin (vitamin B-12) [Vitamin B-12] 100 mcg Tablet 100 mcg PO DAILY Botox 100 unit recon soln 200 unit SUBCUT DIRECTED cholecalciferol (vitamin D3) 1,250 mcg (50,000 unit) capsule 50,000 unit PO Q14D ascorbic acid (vitamin C) [Vitamin C] 1,000 mg Tablet 1 g PO DAILY Discharge Orders: Discharge ED (Routine); Ordered 07/22/24 Ordered By: Sangeeta Miller Referrals: Jin Yañez DO [Physician] - Kriss Betancourt [Primary Care Provider] - Patient Instructions: Cervical Fracture (DC), Opioid Safety, Pain Management Activity Restrictions/Additional Instructions: As we discussed, you need to stay in your cervical collar AT ALL TIMES. DO NOT REMOVE. You are to follow-up with Dr. Yañez on Friday. Our case management team should reach out to you tomorrow to schedule this appointment. If you do not hear from them, please contact Dr. Yañez's office directly and tell them he would like to follow-up with you on Friday. You need to return to the emergency department for worsening or uncontrollable pain, numbness or tingling to your hands or arms, weakness to your upper extremities, or any other concerns you may have. Print Language: Stateless Coding Level of Care Code ED Wet [employer] Blocking Operator for Joshua Billy
[2024-07-22] MEDS: morphine 4 mg/mL SDV 1 mL IVP ×2 (14:41→18:26)
[2024-07-22] MEDS: ondansetron 2 mg/ML SDV 2 mL 4 MG IVP (14:42)
--- NOTE | 2024-07-22 14:44 | MRR_ITS ---
PROCEDURE INFORMATION: Exam: MR Cervical Spine Without Contrast Exam date and time: 07/22/2024 4:39 PM Age: 74 years old Clinical indication: Injury or trauma; Fall with acute fractures of the cervical spine (right lamina of C6, posterior body, left pedicle and the right articular facet of C7), evaluate for possible ligamentous injury. Injury date: Today; [place]--fell Friday nigh, hit RT posterior aspect of head on night stand, bruising and lump. Prior surgery; Surgery date: 6+ months; Surgery type: Cervical fusion; Smoking--n. Cancer (type)--n. TECHNIQUE: Imaging protocol: Magnetic resonance imaging of the cervical spine without contrast. COMPARISON: CT cervical spin wo con 07/22/2024, MRI cervical spine 11/07/2020, MRI thoracic spine 03/02/2024 FINDINGS: Bones/joints: Status post C6-C7 fusion with anterior internal fixation. Normal alignment. Slight decrease in height of T1 vertebral body with bone marrow edema anteriorly concerning for acute compression fracture. Mild bone marrow edema in the upper endplate of T3 with no decrease in vertebral height with no anterior wedging suspicious for acute fracture. Acute fractures documented in the posterior elements of C6 and C7 are not associated with significant bone marrow edema. Spinal cord: Normal signal. No cord compression. C2-C3: Disc height is normal. No disc herniation. No spinal stenosis. No foraminal stenosis. C3-C4: Disc height is normal. Marginal disc osteophyte complex is causing a mild spinal stenosis. Stable mild bilateral foraminal stenosis. C4-C5: Disc height is normal. Stable small marginal disc osteophyte complex is causing mild spinal stenosis. No foraminal stenosis. C5-C6: Disc height is normal. Stable marginal disc osteophyte complex causing [id number] spinal stenosis. No foraminal stenosis. C6-C7: Disc space is fused. No disc herniation. No spinal stenosis. No foraminal stenosis. C7-T1: Disc height is normal. No disc herniation. No spinal stenosis. No foraminal stenosis. Soft tissues: Edema in the interspinous ligament and in the right posterior paraspinal muscles at C6-C7 level and possibly at T1-2 level is suggestive of posttraumatic sprain. Trace amount of prevertebral fluid at C4-C5 level with maximal thickness of 1.5 mm (series 501, image 9, series 801 images 11-14). Trace amount of prevertebral fluid between C7 and T3 level with maximal thickness of 4 mm not well appreciated on axial images only seen on sagittal image (series 501, image 9). Vasculature: Expected flow voids in the vertebral arteries. MR/MR cervical spin wo con* [id number] IMPRESSION: Acute fractures in the posterior elements of C6 and C7 are not associated with significant bone marrow edema. There are acute fractures in T3 with no compression and T1 with mild anterior wedging. Edema in the interspinous ligament at C6-C7 level, and possibly at T1-2 level suggestive of acute injury. Trace amount of prevertebral fluid between C4 and T3 levels. Normal alignment of the cervical and visualized upper thoracic spine.
[2024-07-22] MEDS: HYDROcodone-acetaminophen 7.5-325 mg Tablet 2 TAB PO (19:15)
--- NOTE | 2024-07-22 19:40 | PC.NURSE ---
PT HAS NOT TAKEN BP MEDS TODAY, HE TAKES THEM AT NIGHT. PT IS TO TAKE HYPERTENSION MEDICATION THIS EVENING WHEN HE GETS HOME.
--- NOTE | 2024-07-23 07:19 | DCPLANNER ---
messaged ortho for er f/u
== END 2024-07-22 19:29 | disposition home or self-care (01) ==
PROVIDERS: Emergency Provider Physician Assistant; PCP Nurse Practitioner Family
DX: S22.010A Wedge compression fracture of first thoracic vertebra, initial encounter for closed fracture (principal); S22.039A Unspecified fracture of third thoracic vertebra, initial encounter for closed fracture; S12.601A Unspecified nondisplaced fracture of seventh cervical vertebra, initial encounter for closed fracture; S12.501A Unspecified nondisplaced fracture of sixth cervical vertebra, initial encounter for closed fracture; S12.9XXA Fracture of neck, unspecified, initial encounter; Z79.82 Long term (current) use of aspirin; I10 Essential (primary) hypertension; W19.XXXA Unspecified fall, initial encounter
CPT/HCPCS: 72141; 96374; 96375; 96376; 99284; J2270; J2405; J9999

== ENCOUNTER → 2024-07-27 12:45 | Outpatient (BNVA) | payer MEDICARE, OTHER, SELFPAY | PROVIDERS: PCP Nurse Practitioner Family; Visit Provider Orthopaedic Surgery | DX: S22.010A Wedge compression fracture of first thoracic vertebra, initial encounter for closed fracture (principal); X58.XXXA Exposure to other specified factors, initial encounter | CPT/HCPCS: 72072; 99213 ==

== ENCOUNTER → 2024-08-17 07:58 | Outpatient (BNVA) | payer MEDICARE, OTHER, SELFPAY | PROVIDERS: PCP Nurse Practitioner Family; Visit Provider Orthopaedic Surgery | DX: S12.591D Other nondisplaced fracture of sixth cervical vertebra, subsequent encounter for fracture with routine healing (principal); X58.XXXD Exposure to other specified factors, subsequent encounter; M54.6 Pain in thoracic spine; M54.2 Cervicalgia | CPT/HCPCS: 72040; 72072; 99213 ==

== ENCOUNTER → 2024-08-25 08:43 | Outpatient (BNVA) | payer MEDICARE, OTHER, SELFPAY | PROVIDERS: PCP Nurse Practitioner Family; Visit Provider Physician Assistant | DX: M17.0 Bilateral primary osteoarthritis of knee (principal) | CPT/HCPCS: 73560; 73565; 99213 ==

== ENCOUNTER → 2024-09-17 11:15 | Outpatient (BNVA) | payer MEDICARE, OTHER, SELFPAY | PROVIDERS: PCP Nurse Practitioner Family; Visit Provider Specialist | DX: G51.32 Clonic hemifacial spasm, left (principal) | CPT/HCPCS: 64612; J0585; J9999 ==

== ENCOUNTER → 2024-09-28 13:26 | Outpatient (BNVA) | payer MEDICARE, OTHER, SELFPAY | PROVIDERS: PCP Nurse Practitioner Family; Visit Provider Orthopaedic Surgery | DX: S12.591D Other nondisplaced fracture of sixth cervical vertebra, subsequent encounter for fracture with routine healing (principal); X58.XXXD Exposure to other specified factors, subsequent encounter | CPT/HCPCS: 72040; 72072; 99213 ==

== ENCOUNTER → 2024-10-28 13:03 | Outpatient (BNVA) | payer MEDICARE, OTHER, SELFPAY | PROVIDERS: PCP Nurse Practitioner Family; Visit Provider Orthopaedic Surgery | DX: S12.591D Other nondisplaced fracture of sixth cervical vertebra, subsequent encounter for fracture with routine healing (principal); X58.XXXD Exposure to other specified factors, subsequent encounter | CPT/HCPCS: 72040; 99213 ==

== ENCOUNTER 2024-11-02 05:00 | Outpatient (RCR) | payer MEDICARE, OTHER, SELFPAY | END 2024-12-02 23:59 | disposition home or self-care (01) | LOC: MPT 05:00 | PROVIDERS: Visit Provider Orthopaedic Surgery | DX: S12.9XXD Fracture of neck, unspecified, subsequent encounter (principal); X58.XXXD Exposure to other specified factors, subsequent encounter | CPT/HCPCS: 97110; 97140; 97162 ==

== ENCOUNTER 2024-12-03 05:00 | Outpatient (RCR) | payer MEDICARE, OTHER, SELFPAY | END 2025-01-02 23:59 | disposition home or self-care (01) | LOC: MPT 05:00 | PROVIDERS: PCP Nurse Practitioner Family; Visit Provider Orthopaedic Surgery | DX: S12.9XXD Fracture of neck, unspecified, subsequent encounter (principal); X58.XXXD Exposure to other specified factors, subsequent encounter | CPT/HCPCS: 97110; 97140 ==

== ENCOUNTER → 2024-12-09 12:55 | Outpatient (BNVA) | payer MEDICARE, OTHER, SELFPAY | PROVIDERS: PCP Nurse Practitioner Family; Visit Provider Orthopaedic Surgery | DX: M54.2 Cervicalgia (principal); M54.9 Dorsalgia, unspecified; G89.29 Other chronic pain | CPT/HCPCS: 72040; 99213 ==

== ENCOUNTER → 2024-12-13 09:56 | Outpatient (BNVA) | payer MEDICARE, OTHER, SELFPAY | PROVIDERS: PCP Nurse Practitioner Family; Visit Provider Nurse Practitioner Family | DX: I49.3 Ventricular premature depolarization (principal); R00.1 Bradycardia, unspecified; Z79.82 Long term (current) use of aspirin | CPT/HCPCS: 99213 ==

== ENCOUNTER → 2024-12-23 10:56 | Outpatient (BNVA) | payer MEDICARE, OTHER, SELFPAY | PROVIDERS: PCP Nurse Practitioner Family; Visit Provider Specialist | DX: G51.32 Clonic hemifacial spasm, left (principal) | CPT/HCPCS: 64612; J0585; J9999 ==

== ENCOUNTER 2025-01-03 05:00 | Outpatient (RCR) | payer MEDICARE, OTHER, SELFPAY | END 2025-02-01 23:59 | disposition home or self-care (01) | LOC: MPT 05:00 | PROVIDERS: PCP Nurse Practitioner Family; Visit Provider Orthopaedic Surgery | DX: S12.9XXD Fracture of neck, unspecified, subsequent encounter (principal); M54.2 Cervicalgia; G89.29 Other chronic pain; X58.XXXD Exposure to other specified factors, subsequent encounter | CPT/HCPCS: 97110; 97140; 97530 ==

== ENCOUNTER → 2025-02-10 12:58 | Outpatient (BNVA) | payer MEDICARE, OTHER, SELFPAY | PROVIDERS: PCP Nurse Practitioner Family; Visit Provider Nurse Practitioner Family | DX: L82.1 Other seborrheic keratosis (principal); D22.5 Melanocytic nevi of trunk; L57.8 Other skin changes due to chronic exposure to nonionizing radiation; L81.4 Other melanin hyperpigmentation; L82.0 Inflamed seborrheic keratosis; R20.8 Other disturbances of skin sensation; L53.8 Other specified erythematous conditions | CPT/HCPCS: 17000; 17110; 99213 ==

== ENCOUNTER 2025-02-16 14:36 | Outpatient (RCR) | payer MEDICARE, OTHER, SELFPAY | END 2025-03-04 23:59 | disposition home or self-care (01) | LOC: MPT 14:36 | PROVIDERS: PCP Nurse Practitioner Family; Visit Provider Orthopaedic Surgery | DX: M54.2 Cervicalgia (principal); G89.29 Other chronic pain; S12.9XXD Fracture of neck, unspecified, subsequent encounter; X58.XXXD Exposure to other specified factors, subsequent encounter | CPT/HCPCS: 97110 ==

== ENCOUNTER 2025-02-28 11:49 | Outpatient (RCR) | payer MEDICARE, OTHER, SELFPAY | END 2025-03-04 23:59 | disposition home or self-care (01) | LOC: MPT 11:49 | PROVIDERS: Visit Provider Specialist | DX: M54.2 Cervicalgia (principal); M54.9 Dorsalgia, unspecified | CPT/HCPCS: 97110; 97162 ==

== ENCOUNTER → 2025-03-15 13:10 | Outpatient (BNVA) | payer MEDICARE, OTHER, SELFPAY | PROVIDERS: PCP Nurse Practitioner Family; Visit Provider Orthopaedic Surgery | DX: S12.591D Other nondisplaced fracture of sixth cervical vertebra, subsequent encounter for fracture with routine healing (principal); M54.9 Dorsalgia, unspecified; X58.XXXD Exposure to other specified factors, subsequent encounter | CPT/HCPCS: 72040; 72110; 99213 ==

== ENCOUNTER → 2025-03-24 11:07 | Outpatient (BNVA) | payer MEDICARE, OTHER, SELFPAY | PROVIDERS: PCP Nurse Practitioner Family; Visit Provider Specialist | DX: G51.32 Clonic hemifacial spasm, left (principal); B02.22 Postherpetic trigeminal neuralgia | CPT/HCPCS: 64612; J0585; J9999 ==

== ENCOUNTER 2025-03-29 12:09 | Outpatient (RCR) | payer MEDICARE, OTHER, SELFPAY | END 2025-04-03 23:59 | disposition home or self-care (01) | LOC: MPT 12:09 | PROVIDERS: PCP Nurse Practitioner Family; Visit Provider Specialist | DX: M54.2 Cervicalgia (principal); M54.9 Dorsalgia, unspecified | CPT/HCPCS: 97110; 97112; 97140; 97530 ==

== ENCOUNTER 2025-05-03 14:44 | Outpatient (RCR) | payer MEDICARE, OTHER, SELFPAY | END 2025-05-04 23:59 | disposition home or self-care (01) | LOC: MPT 14:44 | PROVIDERS: PCP Nurse Practitioner Family; Visit Provider Specialist | DX: M54.2 Cervicalgia (principal); M54.9 Dorsalgia, unspecified | CPT/HCPCS: 97110; 97112; 97530 ==